=== PATIENT | female | born 1990 | race Caucasian/White ===

== ENCOUNTER 2020-07-22 17:31 | Emergency (ER) | payer MEDICARE ==
[~2020-07-22] VITALS: Ht 160 cm; Wt 65.1 kg
[2020-07-22 17:33] VITALS: BP 154/81
[2020-07-22] MEDS ORDERED: GABA-1171 PO (17:59)
[2020-07-22] MEDS ORDERED: TRIL600T PO (17:59)
[2020-07-22] MEDS ORDERED: NAPROXEN 250 MG TAB PO ONE (18:30)
[2020-07-22] MEDS ORDERED: OXcarbazepine 300 MG TAB PO STA (19:21)
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
== END 2020-07-22 19:58 | disposition left against medical advice (07) ==
LOC: M ED 17:31
DX: R22.32 Localized swelling, mass and lump, left upper limb (principal); M79.642 Pain in left hand; M54.5 Low back pain; V49.40XA Driver injured in collision with unspecified motor vehicles in traffic accident, initial encounter; I10 Essential (primary) hypertension; Z53.9 Procedure and treatment not carried out, unspecified reason

== ENCOUNTER 2021-02-07 18:32 | Inpatient (IN) | payer MEDICARE ==
[~2021-02-07] VITALS: Ht 162.6 cm; Wt 49.9 kg
[~2021-02-07 18:32] MED LIST: GABA-1171 PO; TRIL600T PO
[2021-02-07] MEDS ORDERED: NS 1,000 ML IV ONE (18:50)
[2021-02-07 19:10] LABS: HEMATOCRIT 36.8 % (36.0-47.0); HEMOGLOBIN 12.6 g/dl (12.0-15.5); MEAN CORPUSCULAR HEMOGLOBIN 31.3 pg (27.0-33.0); MEAN CORPUSCULAR HGB CONC 34.2 g/dl (32.0-36.5); MEAN CORPUSCULAR VOLUME 91.3 fl (80.0-96.0); PLATELET COUNT, AUTOMATED 249 10^3/uL (150-450); RED BLOOD COUNT 4.03 10^6/uL (4.00-5.40); WHITE BLOOD COUNT 13.2 10^3/uL (4.0-10.0)
[2021-02-07 19:40] LABS: HCG, SERUM QUALITATIVE NEGATIVE (NEGATIVE)
[2021-02-07 19:47] LABS: ACETAMINOPHEN LEVEL < 2.0 UG/ML (10.0-30.0); ALBUMIN 4.4 GM/DL (3.2-5.2); ALT/SGPT 30 U/L (12-78); BILIRUBIN,DIRECT 0.2 MG/DL (0.0-0.2); BILIRUBIN,TOTAL 0.5 MG/DL (0.2-1.0); BLOOD UREA NITROGEN 11 MG/DL (7-18); CALCIUM LEVEL 9.2 MG/DL (8.5-10.1); CARBON DIOXIDE LEVEL 23 MEQ/L (21-32); CHLORIDE LEVEL 104 MEQ/L (98-107); CPK CREATINE PHOSPHOKINASE 192 U/L (26-192); CREATININE FOR GFR 0.92 MG/DL (0.55-1.30); ETHYL ALCOHOL (ETHANOL) 0.005 % (0.000-0.010); GLOMERULAR FILTRATION RATE > 60.0 (>60); GLUCOSE, FASTING 150 MG/DL (70-100); POTASSIUM SERUM 3.5 MEQ/L (3.5-5.1); SALICYLATE LEVEL < 1.7 MG/DL (5.0-30.0); SODIUM LEVEL 136 MEQ/L (136-145)
[2021-02-07 20:13] LABS: AMPHETAMINES LEVEL URINE NEGATIVE (NEGATIVE); BARBITURATES URINE NEGATIVE (NEGATIVE); BENZODIAZEPINES URINE NEGATIVE (NEGATIVE); CANNABINOIDS URINE POSITIVE (NEGATIVE); COCAINE METABOLITE URINE NEGATIVE (NEGATIVE); METHADONE URINE NEGATIVE (NEGATIVE); OPIATES URINE NEGATIVE (NEGATIVE); PHENCYCLIDINE URINE NEGATIVE (NEGATIVE)
[2021-02-07] MEDS ORDERED: GABA-282 PO (22:49)
[2021-02-07] MEDS ORDERED: HOME MED LIST COMPLETE! XX SCH (22:50)
[2021-02-08] MEDS: OLANZapine ORAL DISINTEGRATING TAB 5MG PO PRN (01:55)
[2021-02-08] MEDS: traZODone 50 MG TAB PO PRN ×2 (01:55→03:07)
[2021-02-08 02:07] LABS: RSV AMPLIFICATION NEGATIVE (NEGATIVE)
[2021-02-08 03:27] VITALS: BP 118/76
[2021-02-08] MEDS ORDERED: LORazepam 2 MG/ML VIAL IM STA (07:38)
[2021-02-08] MEDS ORDERED: diphenhydrAMINE 50MG/ML VIAL (J1200) IM STA (07:38)
[2021-02-08] MEDS ORDERED: HALOPERIDOL 5MG/ML VIAL (J1630 PER 1) IM STA (07:38)
[2021-02-08 07:40] VITALS: BP 144/96
[2021-02-08] MEDS: GABAPENTIN 100 MG CAP PO SCH ×2 (09:00→20:40)
[2021-02-08] MEDS: OXcarbazepine 300 MG TAB PO SCH ×2 (09:00→20:40)
--- NOTE | 2021-02-08 09:33 | ECGEPIP ---
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
--- NOTE | 2021-02-08 10:05 | HPEPDOC ---
[facility] Medical History & Physical Date of Admission Feb 07, 2021 Date of Service: Feb 08, 2021 History and Physical Chief complaint: Who presented to the ER via EMS after she was acting erratic History of present illness: Patient is a 30 year old female with a PMHx of suspected seizure disorder who presented to [facility] via EMS after she was acting erratic at home. She was noted to have consumed edible marijuana. Patient was admitted to [facility] under the care of psychiatry. Hospitalist service was contacted for medical screening evaluation. Of note, patient was examined in the restraint room after a CODE25 was called on her earlier for combative behavior. She is seen laying in bed, drowsy and off restraints. She was not able to provide much details, other than she was not in any pain. Past Medical History: Suspected seiuzres Past Surgical History: Unable to obtain Allergies: See below Medications: See below Family History: Unable to obtain Social History: - Unable to obtain Review of Systems: Unable to obtain Physical exam: - Vitals: BP [118/76], HR [77], RR [18], Sat [98%RA], Temp [98.4F] - General: Lying in bed, Appears drowsy but awakes and responds and follows commands appropriately - HEENT: NC, AT, PERRLA - CVS: RRR, +S1S2 - Lungs: Fair air entry bilaterally, No appreciable wheezing / rales / rhonchi - Abdomen: Soft, Non-distended, Non-tender, + Bowel sounds x 4 - Extremities: No lower extremity edema, No calf tenderness - Neuro: moves all four extremities - Skin: No visible rashes Labs: See below Imaging: See below EKG: See below Assessment and Plan: Erratic behavior - Patient has been admitted to [facility] under the care of psychiatry - Currently being managed by psychiatry Suspected seizure disorder - Based on medications - c/w Oxcarbazepine DVT prophylaxis - Will c/w early ambulation Female plug maker was present throughout the duration of this history and physical examination Hospitalist service will sign off; please re-consult as required Vital Signs Vital Signs Date Time Temp Pulse Resp B/P (MAP) Pulse Ox O2 Delivery O2 Flow Rate FiO2 02/08/21 03:27 98.4 77 18 118/76 (90) 98 Room Air Laboratory Data Labs 24H Laboratory Tests 2 02/07/21 18:50: Nucleated Red Blood Cells % (auto) 0.0, Anion Gap 9, Glomerular Filtration Rate > 60.0, Calcium Level 9.2, Total Bilirubin 0.5, Direct Bilirubin 0.2, Aspartate Amino Transf (AST/SGOT) 23, Alanine Aminotransferase (ALT/SGPT) 30, Alkaline Phosphatase 63, Total Creatine Kinase 192, Total Protein 7.0, Albumin 4.4, [place]bu min/Globulin Ratio 1.7, Thyroid Stimulating Hormone (TSH) 2.120, Human Chorionic Gonadotropin, Qual NEGATIVE, Salicylates Level < 1.7L, Acetaminophen Level < 2.0L, Ethyl Alcohol Level 0.005 02/07/21 19:33: Urine Opiates Screen NEGATIVE, Urine Methadone Screen NEGATIVE, Urine Bar biturates Screen NEGATIVE, Urine Phencyclidine Screen NEGATIVE, Urine Amphetamines Screen NEGATIVE, Urine Benzodiazepines Screen NEGATIVE, Urine Cocaine Metabolite Screen NEGATIVE, Urine Cannabinoids Screen POSITIVEH 02/08/21 01:11: Coronavirus (COVID-19)(PCR) NEGATIVE, Influenza Type A (RT-PCR) NEGATIVE, Influenza Type B (RT-PCR) NEGATIVE, Respiratory Syncytial Virus (PCR) NEGATIVE CBC/BMP Laboratory Tests 02/07/21 18:50 Home Medications Scheduled Gabapentin (Gabapentin) 300 Mg Capsule, 300 MG PO BID Oxcarbazepine (Trileptal) 600 Mg Tablet, 600 MG PO BID Allergies Coded Allergies: No Known Allergies (Unverified , 07/22/20) STEVIE MICHELE MD Feb 08, 2021 10:05
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
[2021-02-09 06:55] VITALS: BP 117/68
[2021-02-09] MEDS: MAALOX 30 ML SUSP *UDC PO PRN ×2 (07:42→20:17)
[2021-02-09] MEDS: OLANZapine ORAL DISINTEGRATING TAB 5MG PO PRN (08:31)
[2021-02-09] MEDS: OXcarbazepine 300 MG TAB PO SCH ×2 (08:31→20:17)
[2021-02-09] MEDS: GABAPENTIN 100 MG CAP PO SCH ×2 (08:32→20:17)
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
[2021-02-09 16:49] VITALS: BP 143/92
[2021-02-10 05:57] VITALS: BP 128/62
[2021-02-10] MEDS: OXcarbazepine 300 MG TAB PO SCH ×2 (08:59→20:05)
[2021-02-10] MEDS: GABAPENTIN 100 MG CAP PO SCH ×2 (08:59→20:05)
[2021-02-10] MEDS: OLANZapine ORAL DISINTEGRATING TAB 5MG PO PRN ×2 (09:43→20:05)
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
[2021-02-10] MEDS: MAALOX 30 ML SUSP *UDC PO PRN ×2 (15:15→20:04)
[2021-02-10] MEDS: ONDANSETRON 4 MG TAB PO PRN (17:31)
[2021-02-10 17:44] VITALS: BP 145/95
--- NOTE | 2021-02-10 18:41 | IPNPDOC ---
Text Note Date of Service The patient was seen on 02/10/21. NOTE Hospitalist Progress Note Subjective: I was paged to the inpatient mental health unit for evaluation of multiple episodes of nausea and vomiting. Apparently this has been going on for a few days but she has been refusing seen by internal medicine. Now, she is demanding to see a physician ROCCO. Nevertheless, she will then shortly be found dancing, smiling, and laughing while walking in the hallways. I came to see and evaluate the patient and she appeared to be in good spirits, she is not complaining of any nausea at the time, and just had a minimally tender belly. Good bowel sounds. Objective: General: Awake, alert, oriented 3. Not in any acute distress. HEENT: Head normocephalic, atraumatic, sclera are nonicteric. Hearing is grossly intact to conversation. Respiratory: Clear to auscultation bilaterally with no wheezes, rales, or rhonchi. Cardiovascular: Regular rate and rhythm, with no rubs, gallops, or murmur. Abdomen: Soft, nontender, nondistended, no hepatosplenomegaly appreciated. Bowel sounds present. Extremities: 2+ pulses in the radial and dorsalis pedis bilaterally. No evidence of clubbing or cyanosis. Assessment: -Intermittent nausea and vomiting -In reading the medical chart it appears that she may have prolonged and frequent use of cannabis, therefore this may be cannabis hyperemesis syndrome -It is possible that this is also related to unspecified mood disorder, possible bipolar disorder during manic episode, or attention seeking behavior. -Infectious etiology is unlikely given that she has no fever, and is not persistently ill. Plan: Recommend Zofran on an as-needed basis. If this is secondary to cannabis hyperemesis syndrome the mainstay of treatment would be abstinence from cannabis. Otherwise, continue with treatment of psychiatric disorder per the primary team. VS,Fishbone, I+O VS, Fishbone, I+O Vital Signs Date Time Temp Pulse Resp B/P (MAP) Pulse Ox O2 Delivery O2 Flow Rate FiO2 02/10/21 17:44 98.1 95 16 145/95 (112) 99 Room Air LOIS FLORES Feb 10, 2021 18:41
[2021-02-10] MEDS: traZODone 50 MG TAB PO PRN (20:05)
[2021-02-11] MEDS: MAALOX 30 ML SUSP *UDC PO PRN (05:43)
[2021-02-11 07:20] VITALS: BP 139/87
[2021-02-11] MEDS: ONDANSETRON 4 MG TAB PO PRN ×2 (08:18→18:10)
[2021-02-11] MEDS: haloperidoL 5 MG TAB PO SCH ×4 (09:00→21:00)
[2021-02-11] MEDS: GABAPENTIN 100 MG CAP PO SCH ×2 (09:34→22:51)
[2021-02-11] MEDS: OXcarbazepine 300 MG TAB PO SCH ×2 (09:35→22:51)
--- NOTE | 2021-02-11 15:54 | MHIPNPDOC ---
[facility] Progress Note Progress Note DATE OF SERVICE: 02/11/21 HISTORY: Patient is a 30 year old Single, female who was brought to the ED by her father who had reported that she was not taking her Bipolar medications, she presented in the ED with manic speech and behaviors. PER ED REPORT: Pt. has been medically cleared. Pt. is in rm. along with her father. Pt. states she would like her father to stay during interview because he knows her and she is having difficulty thinking and speaking. Even though her speech is quite understandable, she asked for an title one teacher because she doesn't think we can understand her, asks if this abstract writer knows sign language. Pt. speech is quite rapid, she cannot stay on topic and mood is very labile. Pt. states she is her in ER because her mom triggered her and did not count to three for her today and then mother left before she gave her a hug. Pt. stated that she remembered being very anxious and taking off her clothes and crawling to the door, states she cannot connect verbally or visually with anyone Pt. states she has many problems because of her mothers breastmilk had too much caffeine in it. Pt exhibits flight of ideas. Pt. became very upset with father at one pt. and kicked him out of the room, stating he was a liar, was taking her mothers side, that he does not even know her. Pt. is very elevated in conversation, sates she only trusts the director of safety that is outside her door. Pt. states she smokes pot every four hours and has talking to her PCP in [facility] about the medical use of marijuana. Pt. states she has OCD. She tells her father to talk about what the Dr's have said because she does not believe in diagnoses. Pt. father reports pt is diagnosed Bipolar, has had multiple psychiatric admissions, most recently in 12/2019 in [facility]. Father reports pt. has not been taking medication for past two weeks. VITAL SIGNS: See below. CURRENT MEDICATIONS: See below. MENTAL STATUS EXAMINATION: Patient is a 30 year old Single, female who was brought to the ED by her father who had reported that she was not taking her Bipolar medications, she presented in the ED with manic speech and behaviors. Speech: Is spontaneous, normal rate, tone and volume. Tangential Language skills are intact Thought processes including: disorganized and scattered Thought content: She denies depression. Is observed to be very euphoric and grandiose Abstract reasoning, and computation: poor at times Description of associations: Grandiose, manic, flight of ideas Description of abnormal or psychotic thoughts: Patient denies that she is Bipolar, she is very grandiose and makes nonsensical and bizarre statements Judgment: Poor Insight: Poor Orientation: Alert and oriented to person, place and time but not to situation ( states that she was having a seizure) Recent and remote memory: intact Attention span and concentration: good Language: expansive Fund of knowledge: average Mood: Euphoric Affect: congruent with mood DIAGNOSES: 1. Bipolar ! Disorder, Recurrent, Manic 2. Cannabis Use Disorder 3. r/o PTSD 4. r/o Substance Induced Mood Disorder ASSESSMENT: Patient is delusional, grandiose and euphoric in today's interview. She reports that she cannot receive proper treatment here because of two people in the past did not have proper treatment and she only wishes to work with her current outside providers. She often observed by staff as somatic, labile with expansive mood. She is quite hypomanic today, disruptive on the unit, has been on the floor, and remains psychotic. Patient's Zyprexa discontinued and she initially refused Haldol. Patient is very delusional and makes bizarre statements about her parents that they are holiness and have different believes and she had reported that her father does not want her taking Haldol. Father was called for supportive collateral and he stated that he does not ever interfere with treatment and would support the treatment modalities that are in place. He did not tell the patient to refuse Haldol and he supports the administration of medications that will stabilize her mood. Patient had reported in her initial interview that she has had Haldol in the past. Due to patient's presentation, poor insight and judgment. and uncontrolled symptoms of presenting illness of willy and psychosis, she is not stable for discharge. MANAGEMENT PLAN: Continue medications and supportive therapies as ordered. Haldol 5 mg TID and Haldol 5 mg PRN for Q6 hours. Trileptal increased to 600 mg BID. Patient to be discharged when stable. TIME SPENT: 25 minutes. Vital Signs Vital Signs Date Time Temp Pulse Resp B/P (MAP) Pulse Ox O2 Delivery O2 Flow Rate FiO2 8/3/21 07:20 97.4 94 18 139/87 (104) 98 Room Air Current Medications Current Medications Medications (Trade) Dose Ordered Sig/Pepito Route PRN Reason Start Time Stop Time Status Last Admin Dose Admin Acetaminophen (Tylenol Tab) 650 mg Q6HP PRN PO HEADACHE or MILD DISCOMFORT 02/08/21 00:20 Al Hydrox/Mg Hydrox/Simethicone (Mylanta) 30 ml Q4HP PRN PO HEARTBURN/INDIGESTION 02/08/21 00:20 02/11/21 05:43 Diphenhydramine HCl (Benadryl) 50 mg STAT STAT IM 02/08/21 07:38 02/08/21 07:40 DC 02/08/21 07:50 Gabapentin (Neurontin) 100 mg BID PO 02/08/21 09:00 02/11/21 09:34 Haloperidol (Haldol) 5 mg Q6HP PRN PO AGITATION 02/11/21 08:40 Haloperidol (Haldol) 5 mg TID PO 02/11/21 09:00 Haloperidol (Haldol) 10 mg STAT STAT IM 02/08/21 07:38 02/08/21 07:40 DC 02/08/21 07:49 Home Med (Med Rec Complete!) ASDIRECTED XX 02/07/21 22:50 02/07/21 22:56 DC Lorazepam (Ativan) 2 mg STAT STAT IM 02/08/21 07:38 02/08/21 07:40 DC 02/08/21 07:50 Magnesium Hydroxide (Milk Of Magnesia) 30 ml DAILYPRN PRN PO CONSTIPATION 02/08/21 00:20 Olanzapine (ZyPREXA ZYDIS) 5 mg Q8HP PRN PO AGITATION 02/08/21 00:20 02/11/21 08:43 DC 02/10/21 20:05 Ondansetron HCl (Zofran) 4 mg Q4HP PRN PO NAUSEA OR VOMITING 02/10/21 17:25 02/11/21 08:18 Oxcarbazepine (Trileptal) 300 mg BID PO 02/08/21 09:00 02/11/21 09:35 Trazodone HCl (Desyrel) 50 mg QHSP PRN PO INSOMNIA 02/08/21 00:20 02/10/21 20:05 Allergies Coded Allergies: No Known Allergies (Unverified , 07/22/20) PRADEEP WILSON NP Feb 11, 2021 09:46
[2021-02-11 17:11] VITALS: BP 130/92
[2021-02-12] MEDS: ONDANSETRON 4 MG TAB PO PRN ×4 (01:11→20:36)
[2021-02-12] MEDS: MOM 30ML SUSPENSION UDC PO PRN (01:11)
[2021-02-12 06:10] VITALS: BP 129/77
[2021-02-12] MEDS: haloperidoL 5 MG TAB PO SCH ×3 (08:18→20:17)
[2021-02-12] MEDS: OXcarbazepine 300 MG TAB PO SCH ×2 (08:18→20:17)
[2021-02-12] MEDS: GABAPENTIN 100 MG CAP PO SCH ×2 (08:18→20:17)
--- NOTE | 2021-02-12 10:28 | MHIPNPDOC ---
[facility] Progress Note Progress Note DATE OF SERVICE: 02/12/21 HISTORY: Patient is a 30 year old Single, female who was brought to the ED by her father who had reported that she was not taking her Bipolar medica tions, she presented in the ED with manic speech and behaviors. PER ED REPORT: Pt. has been medically cleared. Pt. is in rm. along with her father. Pt. states she would like her father to stay during interview because he knows her and she is having difficulty thinking and speaking. Even though her speech is quite understandable, she asked for an diesel crane operator because she doesn't think we can understand her, asks if this automotive service writer knows sign language. Pt. speech is quite rapid, she cannot stay on topic and mood is very labile. Pt. states she is her in ER because her mom triggered her and did not count to three for her today and then mother left before she gave her a hug. Pt. stated that she remembered being very anxious and taking off her clothes and crawling to the door, states she cannot connect verbally or visually with anyone Pt. states she has many problems because of her mothers breastmilk had too much caffeine in it. Pt exhibits flight of ideas. Pt. became very upset with father at one pt. and kicked him out of the room, stating he was a liar, was taking her mothers side, that he does not even know her. Pt. is very elevated in conversation, sates she only trusts the health/safety job titles that is outside her door. Pt. states she smokes pot every four hours and has talking to her PCP in [facility] about the medical use of marijuana. Pt. states she has OCD. She tells her father to talk about what the Dr's have said because she does not believe in diagnoses. Pt. father reports pt is diagnosed Bipolar, has had multiple psychiatric admissions, most recently in 12/2019 in [facility]. Father reports pt. has not been taking medication for past two weeks. VITAL SIGNS: See below. CURRENT MEDICATIONS: See below. MENTAL STATUS EXAMINATION: Patient is a 30 year old Single, female who was brought to the ED by her father who had reported that she was not taking her Bipolar medications, she presented in the ED with manic speech and behaviors. Speech: Is spontaneous, normal rate, tone and volume. Tangential Language skills are intact Thought processes including: disorganized and scattered Thought content: She denies depression. Is observed to be very euphoric and grandiose Abstract reasoning, and computation: poor at times Description of associations: Grandiose, manic, flight of ideas Description of abnormal or psychotic thoughts: Patient denies that she is Bipolar, she is very grandiose and makes nonsensical and bizarre statements Judgment: Poor Insight: Poor Orientation: Alert and oriented to person, place and time but not to situation ( states that she was having a seizure) Recent and remote memory: intact Attention span and concentration: good Language: expansive Fund of knowledge: average Mood: Euphoric Affect: congruent with mood DIAGNOSES: 1. Bipolar ! Disorder, Recurrent, Manic 2. Cannabis Use Disorder 3. r/o PTSD 4. r/o Substance Induced Mood Disorder ASSESSMENT: Patient remains delusional grandiose and euphoric in interview. She remains persistent wanting to receive treatment from outside providers and to leave this facility and living with her boyfriend. In regards to Haldol, she still refusing to take it and treatment over objection was discussed with patient, for which she was not pleased with and does not believe she needs an antipsychotic medication. It was explained to her that continued refusal may result in her being transferred to the [facility]. She reports that she was able to keep down her Trileptal and gabapentin. Patient is still exhibiting psychotic symptoms and remains hypomanic and disruptive: demands providers contact outside providers to receive their input in her care, purging after taking medicine and eating, and verbally combative with staff and providers. She also stated that she hit her head and had a seizure this morning. Patient is not stable for discharge at this time due to continuous symptoms of willy and psychosis accompanied by poor insight and judgment, and refusal of treatment. MANAGEMENT PLAN: Continue medications and supportive therapies as ordered. Convert to 2 PC. Transfer to [facility], will pursue Treatment Over Objection TIME SPENT: 25 minutes. Vital Signs Vital Signs Date Time Temp Pulse Resp B/P (MAP) Pulse Ox O2 Delivery O2 Flow Rate FiO2 02/12/21 06:10 97.2 98 18 129/77 (94) 98 Room Air Current Medications Current Medications Medications (Trade) Dose Ordered Sig/Pepito Route PRN Reason Start Time Stop Time Status Last Admin Dose Admin Acetaminophen (Tylenol Tab) 650 mg Q6HP PRN PO HEADACHE or MILD DISCOMFORT 02/08/21 00:20 Al Hydrox/Mg Hydrox/Simethicone (Mylanta) 30 ml Q4HP PRN PO HEARTBURN/INDIGESTION 02/08/21 00:20 02/11/21 05:43 Diphenhydramine HCl (Benadryl) 50 mg STAT STAT IM 02/08/21 07:38 02/08/21 07:40 DC 02/08/21 07:50 Gabapentin (Neurontin) 100 mg BID PO 02/08/21 09:00 02/12/21 08:18 Haloperidol (Haldol) 5 mg Q6HP PRN PO AGITATION 02/11/21 08:40 Haloperidol (Haldol) 5 mg TID PO 02/11/21 09:00 02/11/21 11:23 Haloperidol (Haldol) 10 mg STAT STAT IM 02/08/21 07:38 02/08/21 07:40 DC 02/08/21 07:49 Home Med (Med Rec Complete!) ASDIRECTED XX 02/07/21 22:50 02/07/21 22:56 DC Lorazepam (Ativan) 2 mg STAT STAT IM 02/08/21 07:38 02/08/21 07:40 DC 02/08/21 07:50 Magnesium Hydroxide (Milk Of Magnesia) 30 ml DAILYPRN PRN PO CONSTIPATION 02/08/21 00:20 02/12/21 01:11 Olanzapine (ZyPREXA ZYDIS) 5 mg Q8HP PRN PO AGITATION 02/08/21 00:20 02/11/21 08:43 DC 02/10/21 20:05 Ondansetron HCl (Zofran) 4 mg Q4HP PRN PO NAUSEA OR VOMITING 02/10/21 17:25 02/12/21 06:46 Oxcarbazepine (Trileptal) 300 mg BID PO 02/08/21 09:00 02/11/21 16:07 DC 02/11/21 09:35 Oxcarbazepine (Trileptal) 600 mg BID PO 02/11/21 21:00 02/12/21 08:18 Trazodone HCl (Desyrel) 50 mg QHSP PRN PO INSOMNIA 02/08/21 00:20 02/10/21 20:05 Allergies Coded Allergies: No Known Allergies (Unverified , 07/22/20) PRADEEP WILSON NP Feb 12, 2021 10:09
[2021-02-12] MEDS: ACETAMINOPHEN TAB 650MG DOSE (2X325MG) PO PRN (15:17)
[2021-02-12 16:18] VITALS: BP 137/89
[2021-02-12] MEDS: MAALOX 30 ML SUSP *UDC PO PRN (17:31)
[2021-02-12] MEDS: haloperidoL 5 MG TAB PO PRN (19:33)
[2021-02-13 07:43] VITALS: BP 138/94
[2021-02-13] MEDS: GABAPENTIN 100 MG CAP PO SCH ×2 (08:31→19:57)
[2021-02-13] MEDS: OXcarbazepine 300 MG TAB PO SCH ×2 (08:31→19:57)
[2021-02-13] MEDS: haloperidoL 5 MG TAB PO SCH ×3 (08:31→19:57)
--- NOTE | 2021-02-13 08:59 | MHIPNPDOC ---
[facility] Progress Note Progress Note DATE OF SERVICE: 02/13/21 HISTORY: Patient is a 30 year old Single, female who was brought to the ED by her father who had reported that she was not taking her Bipolar medica tions, she presented in the ED with manic speech and behaviors. PER ED REPORT: Pt. has been medically cleared. Pt. is in rm. along with her father. Pt. states she would like her father to stay during interview because he knows her and she is having difficulty thinking and speaking. Even though her speech is quite understandable, she asked for an button breaker operator because she doesn't think we can understand her, asks if this contract technical writer knows sign language. Pt. speech is quite rapid, she cannot stay on topic and mood is very labile. Pt. states she is her in ER because her mom triggered her and did not count to three for her today and then mother left before she gave her a hug. Pt. stated that she remembered being very anxious and taking off her clothes and crawling to the door, states she cannot connect verbally or visually with anyone Pt. states she has many problems because of her mothers breastmilk had too much caffeine in it. Pt exhibits flight of ideas. Pt. became very upset with father at one pt. and kicked him out of the room, stating he was a liar, was taking her mothers side, that he does not even know her. Pt. is very elevated in conversation, sates she only trusts the radiation safety officer that is outside her door. Pt. states she smokes pot every four hours and has talking to her PCP in [facility] about the medical use of marijuana. Pt. states she has OCD. She tells her father to talk about what the Dr's have said because she does not believe in diagnoses. Pt. father reports pt is diagnosed Bipolar, has had multiple psychiatric admissions, most recently in 12/2019 in [facility]. Father reports pt. has not been taking medication for past two weeks. VITAL SIGNS: See below. CURRENT MEDICATIONS: See below. MENTAL STATUS EXAMINATION: Patient is a 30 year old Single, female who was brought to the ED by her father who had reported that she was not taking her Bipolar medications, she presented in the ED with manic speech and behaviors. Speech: Is spontaneous, normal rate, tone and volume. Tangential Language skills are intact Thought processes including: minimally linear, this is an improvement Thought content: She denies depression. Is observed to be very euphoric and grandiose Abstract reasoning, and computation: poor at times Description of associations: Grandiose, hypomanic, euphotic Description of abnormal or psychotic thoughts: continues to be grandiose and makes nonsensical and bizarre statements Judgment: Poor Insight: Poor Orientation: Alert and oriented to person, place and time but not to situation ( states that she was having a seizure) Recent and remote memory: intact Attention span and concentration: good Language: expansive Fund of knowledge: average Mood: Euphoric Affect: congruent with mood DIAGNOSES: 1. Bipolar ! Disorder, Recurrent, Manic 2. Cannabis Use Disorder 3. r/o PTSD 4. r/o Substance Induced Mood Disorder ASSESSMENT: Patient agreeable to interview, has her glasses. She is euphoric and animated in the interview, she has improvement in that she has decrease loose associations, delusional thinking and reports that she is in agreement to taking Haldol and will comply. She is not stable for discharge at this time, but staff is reporting a mild improvement in her behaviors. MANAGEMENT PLAN: Continue medications and supportive therapies as ordered. Convert to 2 PC. Transfer to [facility], will pursue Treatment Over Objection TIme Spent: 25 minutes Vital Signs Vital Signs Date Time Temp Pulse Resp B/P (MAP) Pulse Ox O2 Delivery O2 Flow Rate FiO2 02/12/21 16:18 98.6 77 16 137/89 (105) 100 Room Air Current Medications Current Medications Medications (Trade) Dose Ordered Sig/Pepito Route PRN Reason Start Time Stop Time Status Last Admin Dose Admin Acetaminophen (Tylenol Tab) 650 mg Q6HP PRN PO HEADACHE or MILD DISCOMFORT 02/08/21 00:20 02/12/21 15:17 Al Hydrox/Mg Hydrox/Simethicone (Mylanta) 30 ml Q4HP PRN PO HEARTBURN/INDIGESTION 02/08/21 00:20 02/12/21 17:31 Diphenhydramine HCl (Benadryl) 50 mg STAT STAT IM 02/08/21 07:38 02/08/21 07:40 DC 02/08/21 07:50 Gabapentin (Neurontin) 100 mg BID PO 02/08/21 09:00 02/12/21 20:17 Haloperidol (Haldol) 5 mg Q6HP PRN PO AGITATION 02/11/21 08:40 02/12/21 19:33 Haloperidol (Haldol) 5 mg TID PO 02/11/21 09:00 02/12/21 20:17 Haloperidol (Haldol) 10 mg STAT STAT IM 02/08/21 07:38 02/08/21 07:40 DC 02/08/21 07:49 Home Med (Med Rec Complete!) ASDIRECTED XX 02/07/21 22:50 02/07/21 22:56 DC Lorazepam (Ativan) 2 mg STAT STAT IM 02/08/21 07:38 02/08/21 07:40 DC 02/08/21 07:50 Magnesium Hydroxide (Milk Of Magnesia) 30 ml DAILYPRN PRN PO CONSTIPATION 02/08/21 00:20 02/12/21 01:11 Olanzapine (ZyPREXA ZYDIS) 5 mg Q8HP PRN PO AGITATION 02/08/21 00:20 02/11/21 08:43 DC 02/10/21 20:05 Ondansetron HCl (Zofran) 4 mg Q4HP PRN PO NAUSEA OR VOMITING 02/10/21 17:25 02/12/21 20:36 Oxcarbazepine (Trileptal) 300 mg BID PO 02/08/21 09:00 02/11/21 16:07 DC 02/11/21 09:35 Oxcarbazepine (Trileptal) 600 mg BID PO 02/11/21 21:00 02/12/21 20:17 Trazodone HCl (Desyrel) 50 mg QHSP PRN PO INSOMNIA 02/08/21 00:20 02/10/21 20:05 Allergies Coded Allergies: No Known Allergies (Unverified , 07/22/20) PRADEEP WILSON NP Feb 13, 2021 07:44
[2021-02-13] MEDS: BENZTROPINE 0.5 MG TAB PO PRN (11:59)
[2021-02-13] MEDS: ACETAMINOPHEN TAB 650MG DOSE (2X325MG) PO PRN (12:08)
[2021-02-13 16:49] VITALS: BP 142/90
[2021-02-13] MEDS: ONDANSETRON 4 MG TAB PO PRN (17:27)
[2021-02-13] MEDS: MOM 30ML SUSPENSION UDC PO PRN (19:16)
[2021-02-13] MEDS: haloperidoL 5 MG TAB PO PRN (19:57)
[2021-02-14] MEDS: MAALOX 30 ML SUSP *UDC PO PRN (07:52)
[2021-02-14] MEDS: OXcarbazepine 300 MG TAB PO SCH ×2 (08:26→20:05)
[2021-02-14] MEDS: IBUPROFEN 800 MG TAB PO PRN (08:26)
[2021-02-14] MEDS: GABAPENTIN 100 MG CAP PO SCH ×2 (08:27→20:05)
[2021-02-14] MEDS: haloperidoL 5 MG TAB PO SCH ×3 (08:27→20:05)
[2021-02-14 08:32] VITALS: BP 136/80
--- NOTE | 2021-02-14 09:49 | MHIPNPDOC ---
[facility] Progress Note Progress Note DATE OF SERVICE: 02/14/21 HISTORY: Patient is a 30 year old Single, female who was brought to the ED by her father who had reported that she was not taking her Bipolar medications, she presented in the ED with manic speech and behaviors. PER ED REPORT: Pt. has been medically cleared. Pt. is in rm. along with her father. Pt. states she would like her father to stay during interview because he knows her and she is having difficulty thinking and speaking. Even though her speech is quite understandable, she asked for an bunch maker because she doesn't think we can understand her, asks if this writer editor knows sign language. Pt. speech is quite rapid, she cannot stay on topic and mood is very labile. Pt. states she is her in ER because her mom triggered her and did not count to three for her today and then mother left before she gave her a hug. Pt. stated that she remembered being very anxious and taking off her clothes and crawling to the door, states she cannot connect verbally or visually with anyone Pt. states she has many problems because of her mothers breastmilk had too much caffeine in it. Pt exhibits flight of ideas. Pt. became very upset with father at one pt. and kicked him out of the room, stating he was a liar, was taking her mothers side, that he does not even know her. Pt. is very elevated in conversation, sates she only trusts the water safety teacher that is outside her door. Pt. states she smokes pot every four hours and has talking to her PCP in [facility] about the medical use of marijuana. Pt. states she has OCD. She tells her father to talk about what the Dr's have said because she does not believe in diagnoses. Pt. father reports pt is diagnosed Bipolar, has had multiple psychiatric admissions, most recently in 12/2019 in [facility]. Father reports pt. has not been taking medication for past two weeks. VITAL SIGNS: See below. CURRENT MEDICATIONS: See below. MENTAL STATUS EXAMINATION: Patient is a 30 year old Single, female who was brought to the ED by her father who had reported that she was not taking her Bipolar medications, she presented in the ED with manic speech and behaviors. Speech: Is spontaneous, normal rate, tone and volume. Tangential Language skills are intact Thought processes including: minimally linear, this is an improvement. Flight of ideas and loose associations Thought content: She denies depression. Is observed to be very euphoric and grandiose Abstract reasoning, and computation: poor at times Description of associations: Grandiose, hypomanic, euphotic Description of abnormal or psychotic thoughts: continues to be grandiose and makes nonsensical and bizarre statements Judgment: Poor Insight: Poor Orientation: Alert and oriented to person, place and time but not to situation ( states that she was having a seizure) Recent and remote memory: intact Attention span and concentration: good Language: expansive Fund of knowledge: average Mood: Euphoric and labile affect: congruent with mood DIAGNOSES: 1. Bipolar ! Disorder, Recurrent, Manic 2. Cannabis Use Disorder 3. r/o PTSD 4. r/o Substance Induced Mood Disorder ASSESSMENT: Patient is quite somatic today complains about having nausea and vomiting and diarrhea none of these have been observed by the RNs. Although the patient is self purging and currently has an order to be locked out of her room an hour after medication administration in after meals. Patient complaints about her ovaries and internal organs in continues to have periods of labile mood. Restlessness and irritable and agitation. She remains unstable and does not have good insight or judgment. She has escalating behaviors calling staff names and being very impulsive and intrusive toward peers. MANAGEMENT PLAN: Continue medications and supportive therapies as ordered. Convert to 2 PC. [place] [facility] [place], patient is agreeable to taking medications therefore treatment over objection is terminated. TIme Spent: 25 minutes Vital Signs Vital Signs Date Time Temp Pulse Resp B/P (MAP) Pulse Ox O2 Delivery O2 Flow Rate FiO2 02/14/21 08:32 98.7 125 16 136/80 (98) 100 Room Air Current Medications Current Medications Medications (Trade) Dose Ordered Sig/Pepito Route PRN Reason Start Time Stop Time Status Last Admin Dose Admin Acetaminophen (Tylenol Tab) 650 mg Q6HP PRN PO HEADACHE or MILD DISCOMFORT 02/08/21 00:20 02/14/21 08:07 DC 02/13/21 12:08 Al Hydrox/Mg Hydrox/Simethicone (Mylanta) 30 ml Q4HP PRN PO HEARTBURN/INDIGESTION 02/08/21 00:20 02/14/21 07:52 Benztropine Mesylate (Cogentin) 0.5 mg BIDP PRN PO EPS 02/13/21 11:55 02/13/21 11:59 Diphenhydramine HCl (Benadryl) 50 mg STAT STAT IM 02/08/21 07:38 02/08/21 07:40 DC 02/08/21 07:50 Gabapentin (Neurontin) 100 mg BID PO 02/08/21 09:00 02/14/21 08:27 Haloperidol (Haldol) 5 mg Q6HP PRN PO AGITATION 02/11/21 08:40 02/13/21 19:57 Haloperidol (Haldol) 5 mg TID PO 02/11/21 09:00 02/14/21 08:27 Haloperidol (Haldol) 10 mg STAT STAT IM 02/08/21 07:38 02/08/21 07:40 DC 02/08/21 07:49 Home Med (Med Rec Complete!) ASDIRECTED XX 02/07/21 22:50 02/07/21 22:56 DC Ibuprofen (Advil) 800 mg Q6HP PRN PO MODERATE PAIN (PS 5-7) 02/14/21 08:10 02/14/21 08:26 Lorazepam (Ativan) 2 mg STAT STAT IM 02/08/21 07:38 02/08/21 07:40 DC 02/08/21 07:50 Magnesium Hydroxide (Milk Of Magnesia) 30 ml DAILYPRN PRN PO CONSTIPATION 02/08/21 00:20 02/13/21 19:16 Olanzapine (ZyPREXA ZYDIS) 5 mg Q8HP PRN PO AGITATION 02/08/21 00:20 02/11/21 08:43 DC 02/10/21 20:05 Ondansetron HCl (Zofran) 4 mg Q4HP PRN PO NAUSEA OR VOMITING 02/10/21 17:25 02/13/21 17:27 Oxcarbazepine (Trileptal) 300 mg BID PO 02/08/21 09:00 02/11/21 16:07 DC 02/11/21 09:35 Oxcarbazepine (Trileptal) 600 mg BID PO 02/11/21 21:00 02/14/21 08:26 Trazodone HCl (Desyrel) 50 mg QHSP PRN PO INSOMNIA 02/08/21 00:20 02/10/21 20:05 Allergies Coded Allergies: No Known Allergies (Unverified , 07/22/20) PRADEEP WILSON NP Feb 14, 2021 09:49
[2021-02-14 16:29] VITALS: BP 134/90
[2021-02-15] VITALS (12 sets, daily range): BP systolic 128–157; BP diastolic 69–100
[2021-02-15] MEDS ORDERED: diphenhydrAMINE 50MG/ML VIAL (J1200) IM STA (06:41)
[2021-02-15] MEDS ORDERED: LORazepam 2 MG/ML VIAL IM STA (06:41)
[2021-02-15] MEDS ORDERED: HALOPERIDOL 5MG/ML VIAL (J1630 PER 1) IM STA (06:41)
[2021-02-15] MEDS: GABAPENTIN 100 MG CAP PO SCH ×2 (08:33→20:25)
[2021-02-15] MEDS: OXcarbazepine 300 MG TAB PO SCH ×2 (08:33→20:25)
[2021-02-15] MEDS: haloperidoL 5 MG TAB PO SCH ×3 (08:33→20:25)
[2021-02-16] MEDS: OXcarbazepine 300 MG TAB PO SCH ×2 (08:39→20:31)
[2021-02-16] MEDS: GABAPENTIN 100 MG CAP PO SCH ×2 (08:39→20:32)
[2021-02-16] MEDS: haloperidoL 5 MG TAB PO SCH ×3 (08:55→20:31)
[2021-02-16] MEDS: haloperidoL 5 MG TAB PO PRN (11:12)
[2021-02-16] MEDS: IBUPROFEN 800 MG TAB PO PRN (11:12)
[2021-02-16] MEDS: BENZTROPINE 0.5 MG TAB PO PRN (11:12)
[2021-02-16] MEDS ORDERED: LORazepam 1 MG TAB PO PRN (11:15)
[2021-02-16] MEDS: diphenhydrAMINE 50MG CAP PO PRN (11:40)
[2021-02-16 16:33] VITALS: BP 126/82
[2021-02-17 07:39] VITALS: BP 140/96
[2021-02-17 08:24] VITALS: BP 133/86
[2021-02-17] MEDS: haloperidoL 5 MG TAB PO SCH ×3 (08:26→20:19)
[2021-02-17] MEDS: OXcarbazepine 300 MG TAB PO SCH ×2 (08:26→20:20)
[2021-02-17] MEDS: GABAPENTIN 100 MG CAP PO SCH ×2 (08:26→20:19)
--- NOTE | 2021-02-17 10:45 | MHIPNPDOC ---
[facility] Progress Note Progress Note DATE OF SERVICE: 02/17/21 This is a progress note on Joanne Cline on February 16. Patient had a agitated episode on Wednesday and required physical restraint and extra medications to control her behavior. This morning the patient is in much better control and is in better spirit but is showing no insight and remains quite elevated and inappropriate. She claims that she was just feeling a little too anxious and did not mean to harm anybody but understands that she was out of control. She is denying any physical discomfort or pain and in no acute physical distress and states that she is willing to cooperate with her medications. HISTORY:. VITAL SIGNS: See below. NEW TEST RESULTS:. CURRENT MEDICATIONS: See below. MENTAL STATUS EXAMINATION: Patient is a 30-year old female, who is in no acute distress. Speech: Is pressured. Language skills are fair. Thought processes including: Relevant but easily distracted. Thought content: Claims that she has no major mental health issues. Abstract reasoning, and computation:. Description of associations: Pressured and flighty. Description of abnormal or psychotic thoughts: Denies any command hallucination. Judgment: Poor. Insight poor]. Orientation: Oriented. Recent and remote memory: No gross impairment. Attention span and concentration:. Language:. Fund of knowledge:. Mood: Reports feeling fine. Affect: Inappropriately elevated and labile. DIAGNOSES: 1.. Bipolar disorder manic 2.. Rule out schizoaffective disorder 3.. ASSESSMENT: He is in better control but was quite agitated yesterday MANAGEMENT PLAN: Continue with the current medicine and supportive therapy. TIME SPENT: 10 minutes. Vital Signs Vital Signs Date Time Temp Pulse Resp B/P (MAP) Pulse Ox O2 Delivery O2 Flow Rate FiO2 02/17/21 08:24 98.0 98 18 133/86 (102) 98 Room Air Current Medications Current Medications Medications (Trade) Dose Ordered Sig/Pepito Route PRN Reason Start Time Stop Time Status Last Admin Dose Admin Acetaminophen (Tylenol Tab) 650 mg Q6HP PRN PO HEADACHE or MILD DISCOMFORT 02/08/21 00:20 02/14/21 08:07 DC 02/13/21 12:08 Al Hydrox/Mg Hydrox/Simethicone (Mylanta) 30 ml Q4HP PRN PO HEARTBURN/INDIGESTION 02/08/21 00:20 02/14/21 07:52 Benztropine Mesylate (Cogentin) 0.5 mg BIDP PRN PO EPS 02/13/21 11:55 02/16/21 11:12 Diphenhydramine HCl (Benadryl) 50 mg Q6HP PRN PO ANXIETY/AGITATION 02/16/21 11:15 02/16/21 11:40 Diphenhydramine HCl (Benadryl) 50 mg STAT STAT IM 02/08/21 07:38 02/08/21 07:40 DC 02/08/21 07:50 Diphenhydramine HCl (Benadryl) 50 mg STAT STAT IM 02/15/21 06:41 02/15/21 06:44 DC 02/15/21 07:05 Gabapentin (Neurontin) 100 mg BID PO 02/08/21 09:00 02/17/21 08:26 Haloperidol (Haldol) 5 mg Q6HP PRN PO AGITATION 02/11/21 08:40 02/16/21 11:12 Haloperidol (Haldol) 5 mg STAT STAT IM 02/15/21 06:41 02/15/21 06:44 DC 02/15/21 07:05 Haloperidol (Haldol) 5 mg TID PO 02/11/21 09:00 02/17/21 08:26 Haloperidol (Haldol) 10 mg STAT STAT IM 02/08/21 07:38 02/08/21 07:40 DC 02/08/21 07:49 Home Med (Med Rec Complete!) ASDIRECTED XX 02/07/21 22:50 02/07/21 22:56 DC Ibuprofen (Advil) 800 mg Q6HP PRN PO MODERATE PAIN (PS 5-7) 02/14/21 08:10 02/16/21 11:12 Lorazepam (Ativan) 1 mg Q6HP PRN PO ANXIETY 02/16/21 11:15 02/16/21 11:40 Lorazepam (Ativan) 1 mg STAT STAT IM 02/15/21 06:41 02/15/21 06:44 DC 02/15/21 07:03 Lorazepam (Ativan) 2 mg STAT STAT IM 02/08/21 07:38 02/08/21 07:40 DC 02/08/21 07:50 Magnesium Hydroxide (Milk Of Magnesia) 30 ml DAILYPRN PRN PO CONSTIPATION 02/08/21 00:20 02/13/21 19:16 Olanzapine (ZyPREXA ZYDIS) 5 mg Q8HP PRN PO AGITATION 02/08/21 00:20 02/11/21 08:43 DC 02/10/21 20:05 Ondansetron HCl (Zofran) 4 mg Q4HP PRN PO NAUSEA OR VOMITING 02/10/21 17:25 02/13/21 17:27 Oxcarbazepine (Trileptal) 300 mg BID PO 02/08/21 09:00 02/11/21 16:07 DC 02/11/21 09:35 Oxcarbazepine (Trileptal) 600 mg BID PO 02/11/21 21:00 02/17/21 08:26 Trazodone HCl (Desyrel) 50 mg QHSP PRN PO INSOMNIA 02/08/21 00:20 02/10/21 20:05 Allergies Coded Allergies: No Known Allergies (Unverified , 07/22/20) MAYO BERNARD M.D. Feb 17, 2021 10:45
[2021-02-17] MEDS: diphenhydrAMINE 50MG CAP PO PRN (11:35)
--- NOTE | 2021-02-17 14:52 | MHIPNPDOC ---
[facility] Progress Note Progress Note DATE OF SERVICE: 02/17/21 HISTORY: Patient is a 30 year old Single, female who was brought to the ED by her father who had reported that she was not taking her Bipolar medic ations, she presented in the ED with manic speech and behaviors. PER ED REPORT: Pt. has been medically cleared. Pt. is in rm. along with her father. Pt. states she would like her father to stay during interview because he knows her and she is having difficulty thinking and speaking. Even though her speech is quite understandable, she asked for an furnace clerk because she doesn't think we can understand her, asks if this chief writer knows sign language. Pt. speech is quite rapid, she cannot stay on topic and mood is very labile. Pt. states she is her in ER because her mom triggered her and did not count to three for her today and then mother left before she gave her a hug. Pt. stated that she remembered being very anxious and taking off her clothes and crawling to the door, states she cannot connect verbally or visually with anyone Pt. states she has many problems because of her mothers breastmilk had too much caffeine in it. Pt exhibits flight of ideas. Pt. became very upset with father at one pt. a nd kicked him out of the room, stating he was a liar, was taking her mothers side, that he does not even know her. Pt. is very elevated in conversation, sates she only trusts the health and safety director that is outside her door. Pt. states she smokes pot every four hours and has talking to her PCP in [facility] about the medical use of marijuana. Pt. states she has OCD. She tells her father to talk about what the Dr's have said because she does not believe in diagnoses. Pt. father reports pt is diagnosed Bipolar, has had multiple psychiatric admissions, most recently in 12/[address] [facility]. Father reports pt. has not been taking medication for past two weeks. VITAL SIGNS: See below. CURRENT MEDICATIONS: See below. MENTAL STATUS EXAMINATION: Patient is a 30 year old Single, female who was brought to the ED by her father who had reported that she was not taking her Bipolar medications, she presented in the ED with manic speech and behaviors. Speech: Is spontaneous, normal tone and volume. Tangential Language skills are intact Thought processes including: improved, more linear and organized Thought content: She denies depression. moderate euphoric and grandiose. Abstract reasoning, and computation:fair - improving Description of associations: Grandiose, hypomanic, euphoric Description of abnormal or psychotic thoughts: continues to be grandiose Judgment: improving Insight: improving Orientation: Alert and oriented to person, place and time but not to situation ( states that she was having a seizure) Recent and remote memory: intact Attention span and concentration: good Language: expansive Fund of knowledge: average Mood: Moderately Euphoric affect: congruent with mood DIAGNOSES: 1. Bipolar Disorder, Manic 2. Cannabis Use Disorder 3. r/o PTSD 4. r/o Substance Induced Mood Disorder ASSESSMENT: Patient states that she was coded over the weekend because she stanley me upset about her not being able to have her clothes. She states that she lost her patience and reports that she knows when she is paranoid that she is in a manic phase. She reports that she is having good effects with Haldol. She appeared to have improved mood, still moderately euphoric but appears to have good insight. Says that she will continue her medications, feels that Haldol is working and not making her overly sedated like Invega. Patient may be discharged later in the week if she continues to improve, MANAGEMENT PLAN: Continue medications and supportive therapies as ordered. Convert to 2 PC. TIme Spent: 25 minutes Vital Signs Vital Signs Date Time Temp Pulse Resp B/P (MAP) Pulse Ox O2 Delivery O2 Flow Rate FiO2 02/17/21 08:24 98.0 98 18 133/86 (102) 98 Room Air Current Medications Current Medications Medications (Trade) Dose Ordered Sig/Pepito Route PRN Reason Start Time Stop Time Status Last Admin Dose Admin Acetaminophen (Tylenol Tab) 650 mg Q6HP PRN PO HEADACHE or MILD DISCOMFORT 02/08/21 00:20 02/14/21 08:07 DC 02/13/21 12:08 Al Hydrox/Mg Hydrox/Simethicone (Mylanta) 30 ml Q4HP PRN PO HEARTBURN/INDIGESTION 02/08/21 00:20 02/14/21 07:52 Benztropine Mesylate (Cogentin) 0.5 mg BIDP PRN PO EPS 02/13/21 11:55 02/16/21 11:12 Diphenhydramine HCl (Benadryl) 50 mg Q6HP PRN PO ANXIETY/AGITATION 02/16/21 11:15 02/17/21 11:35 Diphenhydramine HCl (Benadryl) 50 mg STAT STAT IM 02/08/21 07:38 02/08/21 07:40 DC 02/08/21 07:50 Diphenhydramine HCl (Benadryl) 50 mg STAT STAT IM 02/15/21 06:41 02/15/21 06:44 DC 02/15/21 07:05 Gabapentin (Neurontin) 100 mg BID PO 02/08/21 09:00 02/17/21 08:26 Haloperidol (Haldol) 5 mg Q6HP PRN PO AGITATION 02/11/21 08:40 02/16/21 11:12 Haloperidol (Haldol) 5 mg STAT STAT IM 02/15/21 06:41 02/15/21 06:44 DC 02/15/21 07:05 Haloperidol (Haldol) 5 mg TID PO 02/11/21 09:00 02/17/21 08:26 Haloperidol (Haldol) 10 mg STAT STAT IM 02/08/21 07:38 02/08/21 07:40 DC 02/08/21 07:49 Home Med (Med Rec Complete!) ASDIRECTED XX 02/07/21 22:50 02/07/21 22:56 DC Ibuprofen (Advil) 800 mg Q6HP PRN PO MODERATE PAIN (PS 5-7) 02/14/21 08:10 02/16/21 11:12 Lorazepam (Ativan) 1 mg Q6HP PRN PO ANXIETY 02/16/21 11:15 02/16/21 11:40 Lorazepam (Ativan) 1 mg STAT STAT IM 02/15/21 06:41 02/15/21 06:44 DC 02/15/21 07:03 Lorazepam (Ativan) 2 mg STAT STAT IM 02/08/21 07:38 02/08/21 07:40 DC 02/08/21 07:50 Magnesium Hydroxide (Milk Of Magnesia) 30 ml DAILYPRN PRN PO CONSTIPATION 02/08/21 00:20 02/13/21 19:16 Olanzapine (ZyPREXA ZYDIS) 5 mg Q8HP PRN PO AGITATION 02/08/21 00:20 02/11/21 08:43 DC 02/10/21 20:05 Ondansetron HCl (Zofran) 4 mg Q4HP PRN PO NAUSEA OR VOMITING 02/10/21 17:25 02/13/21 17:27 Oxcarbazepine (Trileptal) 300 mg BID PO 02/08/21 09:00 02/11/21 16:07 DC 02/11/21 09:35 Oxcarbazepine (Trileptal) 600 mg BID PO 02/11/21 21:00 02/17/21 08:26 Trazodone HCl (Desyrel) 50 mg QHSP PRN PO INSOMNIA 02/08/21 00:20 02/10/21 20:05 Allergies Coded Allergies: No Known Allergies (Unverified , 07/22/20) PRADEEP WILSON NP Feb 17, 2021 14:52
[2021-02-17 16:28] VITALS: BP 123/83
[2021-02-18 07:03] VITALS: BP 147/81
[2021-02-18] MEDS: GABAPENTIN 100 MG CAP PO SCH ×2 (09:00→20:29)
[2021-02-18] MEDS: OXcarbazepine 300 MG TAB PO SCH ×2 (09:00→20:29)
[2021-02-18] MEDS: haloperidoL 5 MG TAB PO SCH ×3 (09:00→20:29)
[2021-02-18 09:45] LABS: CHOLESTEROL RISK RATIO 1.924 (<5)
[2021-02-18 18:17] VITALS: BP 136/90
[2021-02-19] MEDS: OXcarbazepine 300 MG TAB PO SCH ×2 (08:14→20:04)
[2021-02-19] MEDS: GABAPENTIN 100 MG CAP PO SCH ×2 (08:14→20:04)
[2021-02-19] MEDS: haloperidoL 5 MG TAB PO SCH ×3 (08:14→20:04)
[2021-02-19] MEDS ORDERED: BENZ0.5T23 PO (09:26)
[2021-02-19] MEDS ORDERED: HALO5TA PO (09:26)
--- NOTE | 2021-02-19 10:43 | MHIPNPDOC ---
[facility] [place] Progress Note Progress Note DATE OF SERVICE: 02/18/21 - Late entry HISTORY: Patient is a 30 year old Single, female who was brought to the ED by her father who had reported that she was not taking her Bipolar medications, she presented in the ED with manic speech and behaviors. PER ED REPORT: Pt. has been medically cleared. Pt. is in rm. along with her father. Pt. states she would like her father to stay during interview because he knows her and she is having difficulty thinking and speaking. Even though her speech is quite understandable, she asked for an healthcare consultant because she doesn't think we can understand her, asks if this health underwriter knows sign language. Pt. speech is quite rapid, she cannot stay on topic and mood is very labile. Pt. states she is her in ER because her mom triggered her and did not count to three for her today and then mother left before she gave her a hug. Pt. stated that she remembered being very anxious and taking off her clothes and crawling to the door, states she cannot connect verbally or visually with anyone Pt. states she has many problems because of her mothers breastmilk had too much caffeine in it. Pt exhibits flight of ideas. Pt. became very upset with father at one pt. and kicked him out of the room, stating he was a liar, was taking her mothers side, that he does not even know her. Pt. is very elevated in conversation, sates she only trusts the public safety teacher that is outside her door. Pt. states she smokes pot every four hours and has talking to her PCP in [facility] about the medical use of marijuana. Pt. states she has OCD. She tells her father to talk about what the Dr's have said because she does not believe in diagnoses. Pt. father reports pt is diagnosed Bipolar, has had multiple psychiatric admissions, most recently in 12/[address] [facility]. Father reports pt. has not been taking medication for past two weeks. VITAL SIGNS: See below. CURRENT MEDICATIONS: See below. MENTAL STATUS EXAMINATION: Patient is a 30 year old Single, female who was brought to the ED by her father who had reported that she was not taking her Bipolar medications, she presented in the ED with manic speech and behaviors. Speech: Is spontaneous, normal tone and volume. Mildly Tangential Language skills are intact Thought processes including: improved, more linear and organized Thought content: She denies depression. moderate euphoric and grandiose. Abstract reasoning, and computation:fair - improving Description of associations: Grandiose, hypomanic, euphoric Description of abnormal or psychotic thoughts: continues to be grandiose Judgment: improving Insight: improving Orientation: Alert and oriented to person, place and time but not to situation ( states that she was having a seizure) Recent and remote memory: intact Attention span and concentration: good Language: expansive Fund of knowledge: average Mood: Moderately Euphoric affect: congruent with mood DIAGNOSES: 1. Bipolar 1, Disorder, Manic 2. Cannabis Use Disorder 3. r/o PTSD 4. r/o Substance Induced Mood Disorder ASSESSMENT: In today's meeting patient is showing improvement in her mood, affect and speech. She is mildly tangential but her thought process is more linear and coherent. She smiles on approach, appears mildly euphoric. She is mildly hypomanic but this is an improvement. Patient is improving and she will be discharged on with follow up. She talked about her boyfriend and is hoping to return to his apartment. Patient's parents are willing to take in patient and provider supportive care. MANAGEMENT PLAN: Continue medications and supportive therapies as ordered. Convert to 2 PC. TIme Spent: 25 minutes Vital Signs Vital Signs Date Time Temp Pulse Resp B/P (MAP) Pulse Ox O2 Delivery O2 Flow Rate FiO2 02/18/21 18:17 98.7 83 16 136/90 (105) 100 02/18/21 07:03 Room Air Current Medications Current Medications Medications (Trade) Dose Ordered Sig/Pepito Route PRN Reason Start Time Stop Time Status Last Admin Dose Admin Acetaminophen (Tylenol Tab) 650 mg Q6HP PRN PO HEADACHE or MILD DISCOMFORT 02/08/21 00:20 02/14/21 08:07 DC 02/13/21 12:08 Al Hydrox/Mg Hydrox/Simethicone (Mylanta) 30 ml Q4HP PRN PO HEARTBURN/INDIGESTION 02/08/21 00:20 02/14/21 07:52 Benztropine Mesylate (Cogentin) 0.5 mg BIDP PRN PO EPS 02/13/21 11:55 02/16/21 11:12 Diphenhydramine HCl (Benadryl) 50 mg Q6HP PRN PO ANXIETY/AGITATION 02/16/21 11:15 02/17/21 11:35 Diphenhydramine HCl (Benadryl) 50 mg STAT STAT IM 02/08/21 07:38 02/08/21 07:40 DC 02/08/21 07:50 Diphenhydramine HCl (Benadryl) 50 mg STAT STAT IM 02/15/21 06:41 02/15/21 06:44 DC 02/15/21 07:05 Gabapentin (Neurontin) 100 mg BID PO 02/08/21 09:00 02/19/21 08:14 Haloperidol (Haldol) 5 mg Q6HP PRN PO AGITATION 02/11/21 08:40 02/16/21 11:12 Haloperidol (Haldol) 5 mg STAT STAT IM 02/15/21 06:41 02/15/21 06:44 DC 02/15/21 07:05 Haloperidol (Haldol) 5 mg TID PO 02/11/21 09:00 02/19/21 08:14 Haloperidol (Haldol) 10 mg STAT STAT IM 02/08/21 07:38 02/08/21 07:40 DC 02/08/21 07:49 Home Med (Med Rec Complete!) ASDIRECTED XX 02/07/21 22:50 02/07/21 22:56 DC Ibuprofen (Advil) 800 mg Q6HP PRN PO MODERATE PAIN (PS 5-7) 02/14/21 08:10 02/16/21 11:12 Lorazepam (Ativan) 1 mg Q6HP PRN PO ANXIETY 02/16/21 11:15 02/16/21 11:40 Lorazepam (Ativan) 1 mg STAT STAT IM 02/15/21 06:41 02/15/21 06:44 DC 02/15/21 07:03 Lorazepam (Ativan) 2 mg STAT STAT IM 02/08/21 07:38 02/08/21 07:40 DC 02/08/21 07:50 Magnesium Hydroxide (Milk Of Magnesia) 30 ml DAILYPRN PRN PO CONSTIPATION 02/08/21 00:20 02/13/21 19:16 Olanzapine (ZyPREXA ZYDIS) 5 mg Q8HP PRN PO AGITATION 02/08/21 00:20 02/11/21 08:43 DC 02/10/21 20:05 Ondansetron HCl (Zofran) 4 mg Q4HP PRN PO NAUSEA OR VOMITING 02/10/21 17:25 02/13/21 17:27 Oxcarbazepine (Trileptal) 300 mg BID PO 02/08/21 09:00 02/11/21 16:07 DC 02/11/21 09:35 Oxcarbazepine (Trileptal) 600 mg BID PO 02/11/21 21:00 02/19/21 08:14 Trazodone HCl (Desyrel) 50 mg QHSP PRN PO INSOMNIA 02/08/21 00:20 02/10/21 20:05 Allergies Coded Allergies: No Known Allergies (Unverified , 07/22/20) PRADEEP WILSON NP Feb 19, 2021 10:28
--- NOTE | 2021-02-19 11:01 | MHIPNPDOC ---
[facility] Progress Note Progress Note DATE OF SERVICE: 02/19/21 HISTORY: Patient is a 30 year old Single, female who was brought to the ED by her father who had reported that she was not taking her Bipolar medi cations, she presented in the ED with manic speech and behaviors. PER ED REPORT: Pt. has been medically cleared. Pt. is in rm. along with her father. Pt. states she would like her father to stay during interview because he knows her and she is having difficulty thinking and speaking. Even though her speech is quite understandable, she asked for an translator and interpreter because she doesn't think we can understand her, asks if this check writer salesperson knows sign language. Pt. speech is quite rapid, she cannot stay on topic and mood is very labile. Pt. states she is her in ER because her mom triggered her and did not count to three for her today and then mother left before she gave her a hug. Pt. stated that she remembered being very anxious and taking off her clothes and crawling to the door, states she cannot connect verbally or visually with anyone Pt. states she has many problems because of her mothers breastmilk had too much caffeine in it. Pt exhibits flight of ideas. Pt. became very upset with father at one pt. and kicked him out of the room, stating he was a liar, was taking her mothers side, that he does not even know her. Pt. is very elevated in conversation, sates she only trusts the site safety representative that is outside her door. Pt. states she smokes pot every four hours and has talking to her PCP in [facility] about the medical use of marijuana. Pt. states she has OCD. She tells her father to talk about what the Dr's have said because she does not believe in diagnoses. Pt. father reports pt is diagnosed Bipolar, has had multiple psychiatric admissions, most recently in 12/2019 in [facility]. Father reports pt. has not been taking medication for past two weeks. LABS: Trileptal level ordered, this is a send out lab, results are pending. Lipid panel - within normal limits/ VITAL SIGNS: See below. CURRENT MEDICATIONS: See below. MENTAL STATUS EXAMINATION: Patient is a 30 year old Single, female who was brought to the ED by her father who had reported that she was not taking her Bipolar medications, she presented in the ED with manic speech and behaviors. Speech: Is spontaneous, normal tone and volume. Less Tangential Language skills are intact Thought processes including linear and organized Thought content: She denies depression. denies suicidal ideation/homicidal ideations. Abstract reasoning, and computation:fair - improving Description of associations: less hypomanic Description of abnormal or psychotic thoughts: decreasing hypomania and grandiosity Judgment: fair Insight: fair Orientation: Alert and oriented to person, place and time and situation Recent and remote memory: intact Attention span and concentration: good Language: expansive Fund of knowledge: average Mood: Euthymic affect: congruent with mood DIAGNOSES: 1. Bipolar 1, Disorder, Manic 2. Cannabis Use Disorder 3. r/o PTSD 4. r/o Substance Induced Mood Disorder ASSESSMENT: Patient presents more stable today. She is less hypomanic and has no tangential, rapid speech. Her thought process is linear and goal oriented. She denies depression, anxiety, suicidal/homicidal ideations. She is not presenting with delusional and grandiose thinking. Patient reports that she feels she is stable and at her baseline. She is appreciative in her interview, states that she will maintain and stay compliant with treatment plans including medications. MANAGEMENT PLAN: Continue medications and supportive therapies as ordered. Discharge tomorrow. Orders entered. TIme Spent: 25 minutes Vital Signs Vital Signs Date Time Temp Pulse Resp B/P (MAP) Pulse Ox O2 Delivery O2 Flow Rate FiO2 02/18/21 18:17 98.7 83 16 136/90 (105) 100 02/18/21 07:03 Room Air Current Medications Current Medications Medications (Trade) Dose Ordered Sig/Pepito Route PRN Reason Start Time Stop Time Status Last Admin Dose Admin Acetaminophen (Tylenol Tab) 650 mg Q6HP PRN PO HEADACHE or MILD DISCOMFORT 02/08/21 00:20 02/14/21 08:07 DC 02/13/21 12:08 Al Hydrox/Mg Hydrox/Simethicone (Mylanta) 30 ml Q4HP PRN PO HEARTBURN/INDIGESTION 02/08/21 00:20 02/14/21 07:52 Benztropine Mesylate (Cogentin) 0.5 mg BIDP PRN PO EPS 02/13/21 11:55 02/16/21 11:12 Diphenhydramine HCl (Benadryl) 50 mg Q6HP PRN PO ANXIETY/AGITATION 02/16/21 11:15 02/17/21 11:35 Diphenhydramine HCl (Benadryl) 50 mg STAT STAT IM 02/08/21 07:38 02/08/21 07:40 DC 02/08/21 07:50 Diphenhydramine HCl (Benadryl) 50 mg STAT STAT IM 02/15/21 06:41 02/15/21 06:44 DC 02/15/21 07:05 Gabapentin (Neurontin) 100 mg BID PO 02/08/21 09:00 02/19/21 08:14 Haloperidol (Haldol) 5 mg Q6HP PRN PO AGITATION 02/11/21 08:40 02/16/21 11:12 Haloperidol (Haldol) 5 mg STAT STAT IM 02/15/21 06:41 02/15/21 06:44 DC 02/15/21 07:05 Haloperidol (Haldol) 5 mg TID PO 02/11/21 09:00 02/19/21 08:14 Haloperidol (Haldol) 10 mg STAT STAT IM 02/08/21 07:38 02/08/21 07:40 DC 02/08/21 07:49 Home Med (Med Rec Complete!) ASDIRECTED XX 02/07/21 22:50 02/07/21 22:56 DC Ibuprofen (Advil) 800 mg Q6HP PRN PO MODERATE PAIN (PS 5-7) 02/14/21 08:10 02/16/21 11:12 Lorazepam (Ativan) 1 mg Q6HP PRN PO ANXIETY 02/16/21 11:15 02/16/21 11:40 Lorazepam (Ativan) 1 mg STAT STAT IM 02/15/21 06:41 02/15/21 06:44 DC 02/15/21 07:03 Lorazepam (Ativan) 2 mg STAT STAT IM 02/08/21 07:38 02/08/21 07:40 DC 02/08/21 07:50 Magnesium Hydroxide (Milk Of Magnesia) 30 ml DAILYPRN PRN PO CONSTIPATION 02/08/21 00:20 02/13/21 19:16 Olanzapine (ZyPREXA ZYDIS) 5 mg Q8HP PRN PO AGITATION 02/08/21 00:20 02/11/21 08:43 DC 02/10/21 20:05 Ondansetron HCl (Zofran) 4 mg Q4HP PRN PO NAUSEA OR VOMITING 02/10/21 17:25 02/13/21 17:27 Oxcarbazepine (Trileptal) 300 mg BID PO 02/08/21 09:00 02/11/21 16:07 DC 02/11/21 09:35 Oxcarbazepine (Trileptal) 600 mg BID PO 02/11/21 21:00 02/19/21 08:14 Trazodone HCl (Desyrel) 50 mg QHSP PRN PO INSOMNIA 02/08/21 00:20 02/10/21 20:05 Allergies Coded Allergies: No Known Allergies (Unverified , 07/22/20) PRADEEP WILSON NP Feb 19, 2021 10:59
[2021-02-19] MEDS ORDERED: HALO10TA20 PO (13:48)
[2021-02-19 17:42] VITALS: BP 136/83
[2021-02-19] MEDS: diphenhydrAMINE 50MG CAP PO PRN (20:04)
[2021-02-20 06:25] VITALS: BP 144/82
[2021-02-20] MEDS: haloperidoL 5 MG TAB PO SCH (08:04)
[2021-02-20] MEDS: GABAPENTIN 100 MG CAP PO SCH (08:04)
[2021-02-20] MEDS: OXcarbazepine 300 MG TAB PO SCH (08:04)
[2021-02-20] MEDS ORDERED: HALO5TA PO (09:45)
[2021-02-20] MEDS ORDERED: HALO10TA20 PO (09:45)
--- NOTE | 2021-02-20 15:38 | MHDSPDOC ---
[facility] Discharge Summary Discharge Summary DATE OF ADMISSION: Feb 08, 2021 at 00:16 DATE OF DISCHARGE: Feb 20, 2021 at 10:53 DISCHARGE DIAGNOSES: 1. Bipolar 1, Disorder, Manic 2. Cannabis Use Disorder 3. r/o PTSD 4. r/o Substance Induced Mood Disorder REASON FOR ADMISSION: Patient is a 30 year old Single, female who was brought to the ED by her father who had reported that she was not taking her bipolar medications, she presented in the ED with manic speech and behaviors. PER ED REPORT: Pt. has been medically cleared. Pt. is in rm. along with her father. Pt. states she would like her father to stay during interview because he knows her and she is having difficulty thinking and speaking. Even though her speech is quite understandable, she asked for an translator and interpreter because she doesn't think we can understand her, asks if this job specification writer knows sign language. Pt. speech is quite rapid, she cannot stay on topic and mood is very labile. Pt. states she is her in ER because her mom triggered her and did not count to three for her today and then mother left before she gave her a hug. Pt. stated that she remembered being very anxious and taking off her clothes and crawling to the door, states she cannot connect verbally or visually with anyone Pt. states she has many problems because of her mothers breastmilk had too much caffeine in it. Pt exhibits flight of ideas. Pt. became very upset with father at one pt. and kicked him out of the room, stating he was a liar, was taking her mothers side, that he does not even know her. Pt. is very elevated in conversation, s ates she only trusts the patient safety coordinator that is outside her door. Pt. states she smokes pot every four hours and has talking to her PCP in [place], [place] about the medical use of marijuana. Pt. states she has OCD. She tells her father to talk about what the Dr's have said because she does not believe in diagnoses. Pt. father reports pt. is diagnosed Bipolar, has had multiple psychiatric admissions, most recently in 12/2019 in [facility]. Father reports pt. has not been taking medication for past two weeks. LABS: Trileptal level ordered, this is a send out lab, results are pending. Lipid panel - within normal limits VITAL SIGNS: See below. CONSULTANTS INVOLVED: See Medical H + P by Hospitalist TREATMENT AND PROGRESS ON THE UNIT: Patient was admitted to the [facility] on a 9.39 legal status he was afforded the following treatment modalities: 1) Individual Therapy 2) Group Therapy 3) Medication Management 4) Milieu Therapy 5) Safe Environment HOSPITAL COURSE: Patient was admitted to [facility] on a 9.39 legal status for willy and delusions. She remained manic, grandiose and delusional for over a week, she was initially on Invega which she had reported to be sedating and not effective in the past. She stated the first week that she was not going to comply with medications. Haldol was ordered and she stated that she could not take Haldol. Order for 2 PC and [place] [facility] [place] intention to initiated treatment over objection. Patient then started to be adherent. She was coded twice during this admission for her psychotic episodes. Haldol was effective in treating patient's psychosis. Pt found medications beneficial and tolerated them well. Mood, anxiety, and intrusive thoughts improved with treatment. Pt attended groups daily during stay. Pts symptoms improved with treatment. On day of discharge he denied depression, anxiety, insomnia, SI/HI, hallucinations, delusions. Pt was discharged home with follow- up [facility]. Pt felt safe for discharge. DISCHARGE ASSESSMENT: In today's interview, patient is alert and oriented, pts dress is appropriate. Hygiene and grooming is well-kempt. Smiles on approach and is pleasant and engaged in the interview. Denies depression and anxiety. Denies suicidal and homicidal ideation, planning or intent. Denies and is not observed with willy, psychotic symptoms of delusions, bizarre thinking, obsessions, paranoia, ruminations illogical thoughts, flight of ideas or having poor insight and judgement. Patient has normal mentation, declines further hospitalization on a voluntary status and meets criteria for discharge today. Patient encouraged to return to hospital if symptoms worsen or change and encouraged to call unit if he/she/they needs to speak to provider for questions regarding medications or care. MENTAL STATUS EXAMINATION ON DISCHARGE: Patient is a 30 year old Single, female who was brought to the ED by her father who had reported that she was not taking her bipolar medications, she presented in the ED with manic speech and behaviors. Speech: Is spontaneous, normal tone and volume. Less Tangential Language skills are intact Thought processes including linear and organized Thought content: She denies depression. Denies suicidal ideation/homicidal i deations. Abstract reasoning, and computation: Fair Description of associations: less hypomanic Description of abnormal or psychotic thoughts: decreasing hypomania and grandiosity Judgment: fair Insight: fair Orientation: Alert and oriented to person, place and time and situation Recent and remote memory: intact Attention span and concentration: good Language: expansive Fund of knowledge: average Mood: Euthymic affect: congruent with mood MEDICATIONS ON DISCHARGE: See Medication Reconciliation PLAN/FOLLOWUP ARRANGEMENTS: Patient discharged to home, follow up with [facility] The amount of time spent in the coordination of care for this patient was approximately 25 minutes. ETOH/Disorder Med Rx ETOH/DRUG DISORDER RX: N/A Vital Signs/I&Os Vital Signs Date Time Temp Pulse Resp B/P (MAP) Pulse Ox O2 Delivery O2 Flow Rate FiO2 02/20/21 06:25 98.2 66 16 144/82 (102) 100 Room Air Medications Scheduled Gabapentin (Gabapentin) 300 Mg Capsule, 300 MG PO BID, (Reported) Haloperidol (Haloperidol) 5 Mg Tablet, 5 MG PO QHS for psychosis for 7 Days, #7 Take 1 tablet at Bedtime Haloperidol (Haloperidol) 10 Mg Tablet, 10 MG PO QHS for Psychosis for 7 Days, #7 Take 1 tablet at Bedtime. Oxcarbazepine (Trileptal) 600 Mg Tablet, 600 MG PO BID, (Reported) Scheduled PRN Benztropine Mesylate (Benztropine Mesylate) 0.5 Mg Tablet, 0.5 MG PO BIDP PRN for EPS, #14 Allergies Coded Allergies: No Known Allergies (Unverified , 07/22/20) [employer]EEP [employer] Feb 20, 2021 15:23
== END 2021-02-20 10:53 | disposition home or self-care (01) | DRG 885 ==
LOC: M ED 18:32 → M ED INP 02-08 00:16 → M PSY 02-08 03:23
PROVIDERS: ADMIT Psychiatry & Neurology Psychiatry; ATTEND Psychiatry & Neurology Psychiatry
DX: F31.9 Bipolar disorder, unspecified (principal); Z78.1 Physical restraint status; Z91.14 Patient's other noncompliance with medication regimen; Z20.822 Contact with and (suspected) exposure to COVID-19; Z79.899 Other long term (current) drug therapy; G40.909 Epilepsy, unspecified, not intractable, without status epilepticus; F12.188 Cannabis abuse with other cannabis-induced disorder; F43.10 Post-traumatic stress disorder, unspecified

== ENCOUNTER 2023-07-29 21:12 | Inpatient (IN) | payer MEDICARE, OTHER ==
[~2023-07-29] VITALS: Ht 167.6 cm; Wt 48.7 kg
[~2023-07-29 21:12] MED LIST changes: +BENZ0.5T2 PO; +GABA-282 PO; +HALO10TA20 PO; +HALO5TAB33 PO
[2023-07-29] MEDS ORDERED: LORazepam 2 MG/ML 1ML VIAL IV STA (21:21)
[2023-07-29] MEDS ORDERED: OLANZapine INTRAMUSCULAR 10MG VIAL IM ONE (21:25)
[2023-07-29] MEDS ORDERED: ONDANSETRON 4MG ORAL DISINTEGRATING TAB PO ONE (21:30)
[2023-07-29 21:56] LABS: HEMATOCRIT 36.7 % (36.0-47.0); MEAN CORPUSCULAR HEMOGLOBIN 30.2 pg (27.0-33.0); MEAN CORPUSCULAR HGB CONC 32.7 g/dl (32.0-36.5); MEAN CORPUSCULAR VOLUME 92.4 fl (80.0-96.0); PLATELET COUNT, AUTOMATED 220 10^3/uL (150-450); RED BLOOD COUNT 3.97 10^6/uL (4.00-5.40); WHITE BLOOD COUNT 9.1 10^3/uL (4.0-10.0)
[2023-07-29 22:06] LABS: HCG, SERUM QUALITATIVE NEGATIVE (NEGATIVE)
[2023-07-29 22:19] LABS: ETHYL ALCOHOL (ETHANOL) < 0.003 % (0.000-0.010)
[2023-07-29 22:21] LABS: ALBUMIN 4.3 G/DL (3.2-5.2); ALKALINE PHOSPHATASE 45 U/L (46-116); ALT/SGPT 30 U/L (7.0-40); AST/SGOT 33 U/L (<34); BILIRUBIN,DIRECT 0.2 MG/DL (<0.4); BILIRUBIN,TOTAL 0.6 MG/DL (0.3-1.2); BLOOD UREA NITROGEN 12 MG/DL (9-23); CALCIUM LEVEL 9.4 MG/DL (8.5-10.1); CARBON DIOXIDE LEVEL 21 MMOL/L (20-31); CHLORIDE LEVEL 103 MMOL/L (98-107); CREATININE FOR GFR 0.74 MG/DL (0.55-1.30); GLOMERULAR FILTRATION RATE > 60.0 (>60); GLUCOSE, FASTING 183 MG/DL (60-100); POTASSIUM SERUM 3.6 MMOL/L (3.5-5.1); SALICYLATE LEVEL < 3.0 MG/DL (<30); SODIUM LEVEL 134 MMOL/L (136-145); TOTAL PROTEIN 6.9 G/DL (5.7-8.2)
[2023-07-29 22:23] LABS: THYROID STIMULATING HORMONE 4.675 uIU/ML (0.55-4.78)
[2023-07-30 06:22] LABS: AMPHETAMINES LEVEL URINE NEGATIVE (NEGATIVE); BARBITURATES URINE NEGATIVE (NEGATIVE); BENZODIAZEPINES URINE NEGATIVE (NEGATIVE); COCAINE METABOLITE URINE NEGATIVE (NEGATIVE); METHADONE URINE NEGATIVE (NEGATIVE); OPIATES URINE NEGATIVE (NEGATIVE); PHENCYCLIDINE URINE NEGATIVE (NEGATIVE)
[2023-07-30 06:23] LABS: CANNABINOIDS URINE POSITIVE (NEGATIVE)
[2023-07-30] MEDS ORDERED: PREPARATION H SUPP (HEMORRHOID) PR PRN (09:05)
[2023-07-30] MEDS ORDERED: LORazepam 2 MG TAB PO ONE (09:05)
[2023-07-30] MEDS ORDERED: LORazepam 2 MG/ML 1ML VIAL IM ONE (10:55)
[2023-07-30] MEDS ORDERED: LORazepam 2 MG/ML 1ML VIAL IM STA ×2 (12:17→23:25)
[2023-07-30] MEDS ORDERED: OLANZapine INTRAMUSCULAR 10MG VIAL IM ONE (13:45)
[2023-07-30] MEDS ORDERED: HOME MED LIST COMPLETE! XX SCH (14:00)
[2023-07-30] MEDS ORDERED: MOM 30ML SUSPENSION UDC PO PRN (18:30)
[2023-07-30] MEDS ORDERED: diphenhydrAMINE 25MG CAP PO PRN (18:30)
[2023-07-30] MEDS ORDERED: IBUPROFEN 400MG TAB PO PRN (18:30)
[2023-07-30] MEDS ORDERED: MAALOX 30 ML SUSP *UDC PO PRN (18:30)
[2023-07-30] MEDS ORDERED: ACETAMINOPHEN TAB 650MG DOSE (2X325MG) PO PRN (18:30)
[2023-07-30] MEDS ORDERED: traZODone 50 MG TAB PO PRN (18:30)
[2023-07-30] MEDS ORDERED: PREPARATION H OINTMENT (HEMORRHOID) TOP ONE (21:40)
[2023-07-30] MEDS ORDERED: HALOPERIDOL 5MG/ML 1ML VIAL IM STA (23:25)
[2023-07-30] MEDS ORDERED: diphenhydrAMINE 50MG/ML VIAL IM STA (23:25)
[2023-07-31] MEDS ORDERED: HALOPERIDOL 5MG/ML 1ML VIAL IM STA (00:16)
[2023-07-31] MEDS ORDERED: diphenhydrAMINE 50MG/ML VIAL IM STA (00:16)
[2023-07-31] MEDS ORDERED: LORazepam 2 MG/ML 1ML VIAL IM STA (00:16)
[2023-07-31] MEDS: DIVALPROEX 250MG *ER* TAB PO SCH (09:00)
[2023-07-31 16:08] VITALS: BP 122/84; TEMP 98.8; O2SAT 98
[2023-07-31] MEDS ORDERED: NYSTATIN OINTMENT 15 GM TOP SCH (18:10)
[2023-07-31] MEDS: KETOCONAZOLE 2% CREAM TOP SCH (19:00)
[2023-07-31] MEDS: ANUSOL HC CREAM 30GM TOP PRN (19:10)
[2023-08-01] MEDS: ANUSOL HC CREAM 30GM TOP PRN ×2 (06:34→18:56)
[2023-08-01 07:01] VITALS: BP 105/65; TEMP 97.2; O2SAT 98
[2023-08-01] MEDS: DIVALPROEX 250MG *ER* TAB PO SCH (09:00)
[2023-08-01] MEDS: KETOCONAZOLE 2% CREAM TOP SCH (09:09)
[2023-08-01 16:32] VITALS: BP 139/87; TEMP 98.9; O2SAT 100
[2023-08-02 06:55] VITALS: BP 131/94; TEMP 97.2; O2SAT 100
[2023-08-02] MEDS: ANUSOL HC CREAM 30GM TOP PRN (07:31)
[2023-08-02] MEDS: DIVALPROEX 250MG *ER* TAB PO SCH (08:11)
[2023-08-02] MEDS: KETOCONAZOLE 2% CREAM TOP SCH (08:56)
[2023-08-02 18:58] VITALS: BP 141/86; TEMP 98.6; O2SAT 99
[2023-08-03 06:00] VITALS: BP 145/88; TEMP 98.3; O2SAT 98
[2023-08-03] MEDS: DIVALPROEX 250MG *ER* TAB PO SCH (08:09)
[2023-08-03] MEDS: KETOCONAZOLE 2% CREAM TOP SCH (08:11)
[2023-08-03] MEDS: ANUSOL HC CREAM 30GM TOP PRN ×2 (08:11→22:30)
[2023-08-03 18:00] VITALS: BP 158/78; TEMP 97.1; O2SAT 100
[2023-08-04 06:08] VITALS: BP 136/85; TEMP 97.4; O2SAT 100
[2023-08-04] MEDS: KETOCONAZOLE 2% CREAM TOP SCH (08:46)
[2023-08-04] MEDS: DIVALPROEX 250MG *ER* TAB PO SCH ×2 (08:46→19:53)
[2023-08-04 16:57] VITALS: BP 161/81; TEMP 97.9; O2SAT 100
[2023-08-05 05:52] VITALS: BP 121/79; TEMP 97.7
[2023-08-05] MEDS: KETOCONAZOLE 2% CREAM TOP SCH (08:24)
[2023-08-05] MEDS: DIVALPROEX 250MG *ER* TAB PO SCH (08:25)
[2023-08-05] MEDS ORDERED: HALO5TAB33 PO (08:43)
[2023-08-05 16:12] VITALS: BP 129/88; TEMP 97.7; O2SAT 99
[2023-08-06 06:19] VITALS: BP 140/84; TEMP 97.1
[2023-08-06] MEDS: KETOCONAZOLE 2% CREAM TOP SCH (08:18)
[2023-08-06] MEDS: DIVALPROEX 250MG *ER* TAB PO SCH (08:20)
== END 2023-08-06 11:12 | disposition home or self-care (01) | DRG 885 ==
LOC: M ED 21:12 → M ED INP 07-30 18:26 → M PSY 07-30 23:22
PROVIDERS: ADMIT Student in an Organized Health Care Education/Training Program; ATTEND Student in an Organized Health Care Education/Training Program
DX: F31.9 Bipolar disorder, unspecified (principal); F60.3 Borderline personality disorder; F12.90 Cannabis use, unspecified, uncomplicated; Z78.1 Physical restraint status; B35.4 Tinea corporis; Z20.822 Contact with and (suspected) exposure to COVID-19

== ENCOUNTER 2023-08-13 20:02 | Inpatient (IN) | payer MEDICARE ==
[~2023-08-13] VITALS: Ht 167.6 cm; Wt 49.0 kg
[2023-08-13] MEDS: HALOPERIDOL 5MG/ML 1ML VIAL IM ONE (20:33)
[2023-08-13] MEDS: diphenhydrAMINE 50MG/ML VIAL IM ONE (20:33)
[2023-08-13] MEDS: LORazepam 2 MG/ML 1ML VIAL IM ONE (20:33)
[2023-08-13] MEDS: NS 1,000 ML IV ONE (20:54)
[2023-08-13 20:55] LABS: BASO % 0.5 % (0.0-1.0); EOS % 0.1 % (0.0-3.0); HEMATOCRIT 35.5 % (36.0-47.0); HEMOGLOBIN 11.7 g/dl (12.0-15.5); LYMPH # 1.3 10^3/uL (1.5-5.0); LYMPH % 17.6 % (24.0-44.0); MEAN CORPUSCULAR HEMOGLOBIN 30.7 pg (27.0-33.0); MEAN CORPUSCULAR VOLUME 93.2 fl (80.0-96.0); MONO # 0.8 10^3/uL (0.0-0.8); MONO % 10.5 % (2.0-8.0); NEUTROPHILS # 5.4 10^3/uL (1.5-8.5); NEUTROPHILS % 71.2 % (36.0-66.0); PLATELET COUNT, AUTOMATED 227 10^3/uL (150-450); RED BLOOD COUNT 3.81 10^6/uL (4.00-5.40); WHITE BLOOD COUNT 7.6 10^3/uL (4.0-10.0)
[2023-08-13 21:17] LABS: ETHYL ALCOHOL (ETHANOL) < 0.003 % (0.000-0.010)
[2023-08-13 21:18] LABS: CPK CREATINE PHOSPHOKINASE 605 U/L (34-145)
[2023-08-13 21:19] LABS: ALBUMIN 4.2 G/DL (3.2-5.2); ALKALINE PHOSPHATASE 43 U/L (46-116); ALT/SGPT 47 U/L (7.0-40); AST/SGOT 47 U/L (<34); BILIRUBIN,DIRECT 0.3 MG/DL (<0.4); BILIRUBIN,TOTAL 0.7 MG/DL (0.3-1.2); BLOOD UREA NITROGEN 13 MG/DL (9-23); CALCIUM LEVEL 9.1 MG/DL (8.5-10.1); CARBON DIOXIDE LEVEL 27 MMOL/L (20-31); CHLORIDE LEVEL 105 MMOL/L (98-107); CREATININE FOR GFR 0.77 MG/DL (0.55-1.30); GLOMERULAR FILTRATION RATE > 60.0 (>60); GLUCOSE, FASTING 98 MG/DL (60-100); POTASSIUM SERUM 4.1 MMOL/L (3.5-5.1); SALICYLATE LEVEL < 3.0 MG/DL (<30); SODIUM LEVEL 140 MMOL/L (136-145); TOTAL PROTEIN 6.6 G/DL (5.7-8.2)
[2023-08-13 21:31] LABS: RSV AMPLIFICATION NEGATIVE (NEGATIVE)
[2023-08-13 21:52] LABS: HCG, SERUM QUALITATIVE NEGATIVE (NEGATIVE)
[2023-08-13 21:54] LABS: THYROID STIMULATING HORMONE 2.354 uIU/ML (0.55-4.78)
[2023-08-13 22:42] LABS: AMPHETAMINES LEVEL URINE NEGATIVE (NEGATIVE); BARBITURATES URINE NEGATIVE (NEGATIVE); BENZODIAZEPINES URINE NEGATIVE (NEGATIVE); COCAINE METABOLITE URINE NEGATIVE (NEGATIVE); METHADONE URINE NEGATIVE (NEGATIVE); OPIATES URINE NEGATIVE (NEGATIVE); PHENCYCLIDINE URINE NEGATIVE (NEGATIVE)
[2023-08-13 22:47] LABS: CANNABINOIDS URINE POSITIVE (NEGATIVE)
[2023-08-13] MEDS ORDERED: ALPR0.5T3 PO (23:38)
[2023-08-13] MEDS ORDERED: HOME MED LIST COMPLETE! XX SCH (23:45)
[2023-08-14] MEDS ORDERED: MED REC IN PROGRESS XX SCH (11:40)
[2023-08-14 13:39] VITALS: BP 110/68; TEMP 97.9; O2SAT 99
[2023-08-14 16:59] VITALS: BP 135/75; TEMP 98.3; O2SAT 99
[2023-08-15 06:36] VITALS: BP 118/76; TEMP 96; O2SAT 100
[2023-08-15 16:59] VITALS: BP 126/82; TEMP 98.2; O2SAT 100
[2023-08-15] MEDS: NICOTINE POLACRILEX 2 MG GUM PO PRN (19:36)
[2023-08-16 06:34] VITALS: BP 133/70; TEMP 98
[2023-08-16] MEDS: DIVALPROEX 250MG TAB PO SCH (09:00)
[2023-08-16] MEDS: OLANZapine 5 MG TAB PO SCH (09:00)
[2023-08-16] MEDS: LOPERAMIDE 2 MG CAPLET PO PRN (16:18)
[2023-08-16 18:14] VITALS: BP 135/98; TEMP 98; O2SAT 98
[2023-08-17 06:39] VITALS: BP 110/77; TEMP 96.8; O2SAT 100
[2023-08-17] MEDS: CARIPRAZINE 3MG CAPSULE (VRAYLAR) PO SCH (09:28)
[2023-08-17 17:13] VITALS: BP 141/83; TEMP 98.3; O2SAT 99
[2023-08-18 06:23] VITALS: BP 127/83; TEMP 96.7; O2SAT 98
[2023-08-18 18:17] VITALS: BP 136/86; TEMP 97.1
[2023-08-19 06:15] VITALS: BP 128/90; TEMP 98.1; O2SAT 99
[2023-08-19] MEDS: CARIPRAZINE 3MG CAPSULE (VRAYLAR) PO ONE (09:33)
[2023-08-19 17:25] VITALS: BP 144/90; TEMP 97.5
[2023-08-20] MEDS: CARIPRAZINE 1.5MG CAPSULE (VRAYLAR) PO SCH (08:10)
[2023-08-20] MEDS ORDERED: VRAY1.5C PO (08:41)
== END 2023-08-20 10:58 | disposition home or self-care (01) | DRG 885 ==
LOC: M ED 20:02 → EDBD 20:02 → M PSY 08-14 11:33 → M ED 08-14 12:41 → M PSY 08-19 23:30
PROVIDERS: ADMIT Student in an Organized Health Care Education/Training Program; ATTEND Student in an Organized Health Care Education/Training Program
DX: F31.2 Bipolar disorder, current episode manic severe with psychotic features (principal); F12.90 Cannabis use, unspecified, uncomplicated; Z78.1 Physical restraint status; Z91.148 Patient's other noncompliance with medication regimen for other reason; F17.200 Nicotine dependence, unspecified, uncomplicated; K58.8 Other irritable bowel syndrome

== ENCOUNTER 2023-08-27 10:49 | Inpatient (IN) | payer MEDICARE ==
[~2023-08-27] VITALS: Ht 160 cm; Wt 53.1 kg
[~2023-08-27 10:49] MED LIST changes: +ALPR0.5T3 PO; +VRAY1.5C PO
[2023-08-27 11:44] LABS: HEMATOCRIT 36.4 % (36.0-47.0); MEAN CORPUSCULAR HEMOGLOBIN 30.5 pg (27.0-33.0); MEAN CORPUSCULAR VOLUME 92.6 fl (80.0-96.0); PLATELET COUNT, AUTOMATED 271 10^3/uL (150-450); RED BLOOD COUNT 3.93 10^6/uL (4.00-5.40); WHITE BLOOD COUNT 9.3 10^3/uL (4.0-10.0)
[2023-08-27 12:02] LABS: AMPHETAMINES LEVEL URINE NEGATIVE (NEGATIVE); BARBITURATES URINE NEGATIVE (NEGATIVE); BENZODIAZEPINES URINE NEGATIVE (NEGATIVE); COCAINE METABOLITE URINE NEGATIVE (NEGATIVE); METHADONE URINE NEGATIVE (NEGATIVE); OPIATES URINE NEGATIVE (NEGATIVE); PHENCYCLIDINE URINE NEGATIVE (NEGATIVE)
[2023-08-27 12:03] LABS: CANNABINOIDS URINE POSITIVE (NEGATIVE); ETHYL ALCOHOL (ETHANOL) 0.005 % (0.000-0.010)
[2023-08-27 12:05] LABS: ALBUMIN 4.1 G/DL (3.2-5.2); ALKALINE PHOSPHATASE 48 U/L (46-116); ALT/SGPT 42 U/L (7.0-40); AST/SGOT 47 U/L (<34); BILIRUBIN,DIRECT 0.2 MG/DL (<0.4); BILIRUBIN,TOTAL 0.7 MG/DL (0.3-1.2); BLOOD UREA NITROGEN 14 MG/DL (9-23); CALCIUM LEVEL 9.2 MG/DL (8.5-10.1); CARBON DIOXIDE LEVEL 25 MMOL/L (20-31); CHLORIDE LEVEL 107 MMOL/L (98-107); GLOMERULAR FILTRATION RATE > 60.0 (>60); GLUCOSE, FASTING 112 MG/DL (60-100); POTASSIUM SERUM 4.1 MMOL/L (3.5-5.1); SALICYLATE LEVEL < 3.0 MG/DL (<30); SODIUM LEVEL 139 MMOL/L (136-145); TOTAL PROTEIN 6.7 G/DL (5.7-8.2)
[2023-08-27 12:07] LABS: THYROID STIMULATING HORMONE 4.493 uIU/ML (0.55-4.78)
[2023-08-27] MEDS ORDERED: IBUPROFEN 400MG TAB PO PRN (14:45)
[2023-08-27] MEDS ORDERED: MAALOX 30 ML SUSP *UDC PO PRN (14:45)
[2023-08-27] MEDS ORDERED: MOM 30ML SUSPENSION UDC PO PRN (14:45)
[2023-08-27] MEDS ORDERED: ACETAMINOPHEN TAB 650MG DOSE (2X325MG) PO PRN (14:45)
[2023-08-27 16:06] VITALS: BP 134/89; TEMP 98.1; O2SAT 97
[2023-08-27] MEDS ORDERED: HOME MED LIST COMPLETE! XX SCH (16:45)
[2023-08-27] MEDS: OLANZapine 5 MG TAB PO PRN (19:42)
[2023-08-27] MEDS: LORazepam 2 MG TAB PO ONE (20:30)
[2023-08-28] MEDS: NICOTINE POLACRILEX 2 MG GUM PO PRN (08:31)
[2023-08-28] MEDS ORDERED: LORazepam 2 MG/ML 1ML VIAL IM PRN (09:20)
[2023-08-28] MEDS: LORazepam 2 MG TAB PO PRN (11:41)
[2023-08-28 16:26] VITALS: BP 138/82; TEMP 98.8; O2SAT 98
[2023-08-29 16:14] VITALS: BP 133/88; TEMP 98.8; O2SAT 99
[2023-08-29] MEDS: OLANZapine 10 MG TAB PO SCH (21:23)
[2023-08-30 06:20] VITALS: BP 124/82; TEMP 97.7; O2SAT 98
[2023-08-30] MEDS: CARIPRAZINE 3MG CAPSULE (VRAYLAR) PO SCH (09:00)
[2023-08-30 17:24] VITALS: BP 130/82; TEMP 98; O2SAT 99
[2023-08-31 06:12] VITALS: BP 121/83; TEMP 97.3; O2SAT 99
[2023-08-31] MEDS: diphenhydrAMINE 25MG CAP PO PRN (09:29)
[2023-08-31 15:57] VITALS: BP 135/66; TEMP 97.7; O2SAT 99
[2023-09-01 06:28] VITALS: BP 112/64; TEMP 97.5; O2SAT 99
[2023-09-01 10:45] VITALS: BP 149/71; TEMP 97.9
[2023-09-01 16:27] VITALS: BP 137/82; TEMP 98.5; O2SAT 99
[2023-09-02 06:13] VITALS: BP 123/74; TEMP 98.6; O2SAT 100
[2023-09-02] MEDS: CARIPRAZINE 1.5MG CAPSULE (VRAYLAR) PO SCH (09:00)
[2023-09-02] MEDS: diphenhydrAMINE 50MG CAP PO ONE (09:50)
[2023-09-02] MEDS: LORazepam 2 MG TAB PO ONE (09:50)
[2023-09-02 17:13] VITALS: BP 160/90; TEMP 98.1; O2SAT 99
[2023-09-03 06:21] VITALS: BP 119/69; TEMP 98.2; O2SAT 98
[2023-09-03 15:11] VITALS: BP 160/90; TEMP 98.2; O2SAT 97
[2023-09-03] MEDS: traZODone 50 MG TAB PO PRN (20:13)
[2023-09-04 06:38] VITALS: BP 124/59; TEMP 98; O2SAT 97
[2023-09-04] MEDS: diphenhydrAMINE CREAM 30GM TOP PRN (16:06)
[2023-09-04 16:31] VITALS: BP 128/80; TEMP 98.6; O2SAT 98
[2023-09-05 06:32] VITALS: BP 142/77; TEMP 98.7; O2SAT 99
[2023-09-05 16:33] VITALS: BP 139/85; TEMP 98.5; O2SAT 99
[2023-09-05] MEDS: CYANOCOBALAMIN 500 MCG TAB PO SCH (20:43)
[2023-09-06 06:19] VITALS: BP 111/68; TEMP 97.4; O2SAT 100
[2023-09-06 17:53] VITALS: BP 126/76; TEMP 97.8
[2023-09-07 06:08] VITALS: BP 119/68; TEMP 97.8; O2SAT 100
[2023-09-07] MEDS ORDERED: OLAN1TAB20 PO (11:29)
[2023-09-07] MEDS ORDERED: TRAZ-252 PO (11:29)
[2023-09-07] MEDS ORDERED: VRAY1.5C PO (11:29)
[2023-09-07] MEDS ORDERED: NICO2GUM PO (11:29)
== END 2023-09-07 13:26 | disposition home or self-care (01) | DRG 885 ==
LOC: M ED 10:49 → M ED INP 14:45 → M PSY 15:43
PROVIDERS: ADMIT Student in an Organized Health Care Education/Training Program; ATTEND Student in an Organized Health Care Education/Training Program
DX: F31.2 Bipolar disorder, current episode manic severe with psychotic features (principal); Z91.148 Patient's other noncompliance with medication regimen for other reason; G40.909 Epilepsy, unspecified, not intractable, without status epilepticus

== ENCOUNTER 2024-12-31 23:19 | Inpatient (IN) | payer MEDICARE, OTHER ==
[~2024-12-31] VITALS: Ht 160 cm; Wt 50.2 kg
[~2024-12-31 23:19] MED LIST changes: +GABA-1172 PO; -GABA-282 PO; +NICO2GUM PO; +OLAN1TAB20 PO; +TRAZ-252 PO
[2025-01-01] MEDS: diphenhydrAMINE 50 MG/ML VIAL IM ONE (00:19)
[2025-01-01] MEDS: HALOPERIDOL LACTATE 5 MG/ML VIAL IM ONE (00:19)
[2025-01-01 00:26] LABS: ETHYL ALCOHOL (ETHANOL) 0.006 % (0.000-0.010)
[2025-01-01 00:26] LABS: PLATELET COUNT, AUTOMATED 234 10^3/uL (150-450)
[2025-01-01 00:28] LABS: SALICYLATE LEVEL < 3.0 MG/DL (<30)
[2025-01-01 00:29] LABS: ALT/SGPT 68 U/L (7.0-40); AST/SGOT 96 U/L (<34); CALCIUM LEVEL 9.5 MG/DL (8.5-10.1); CARBON DIOXIDE LEVEL 24 MMOL/L (20-31); CHLORIDE LEVEL 105 MMOL/L (98-107); CREATININE FOR GFR 0.79 MG/DL (0.55-1.30); GLOMERULAR FILTRATION RATE > 90.0 (>60); POTASSIUM SERUM 4.2 MMOL/L (3.5-5.1); SODIUM LEVEL 141 MMOL/L (136-145)
[2025-01-01] MEDS ORDERED: HOME MED LIST COMPLETE! XX SCH (10:20)
[2025-01-01 10:39] LABS: AMPHETAMINES LEVEL URINE NEGATIVE (NEGATIVE)
[2025-01-01 10:40] LABS: BARBITURATES URINE NEGATIVE (NEGATIVE); BENZODIAZEPINES URINE NEGATIVE (NEGATIVE); CANNABINOIDS URINE POSITIVE (NEGATIVE); COCAINE METABOLITE URINE NEGATIVE (NEGATIVE); METHADONE URINE NEGATIVE (NEGATIVE); OPIATES URINE NEGATIVE (NEGATIVE); PHENCYCLIDINE URINE NEGATIVE (NEGATIVE)
[2025-01-01 10:40] LABS: HEPATITIS C VIRUS ABY INDEX 0.03 INDEX (<0.8)
[2025-01-01] MEDS ORDERED: IBUPROFEN 400 MG TAB PO PRN (12:50)
[2025-01-01] MEDS ORDERED: MAALOX 30 ML SUSP *UDC PO PRN (12:50)
[2025-01-01] MEDS ORDERED: ACETAMINOPHEN 325 MG TAB PO PRN (12:50)
[2025-01-01 18:23] LABS: HIV SCREEN CENTAUR SOURCE NEGATIVE (NEGATIVE)
[2025-01-01 22:35] VITALS: BP 140/85; TEMP 97.6; O2SAT 99
[2025-01-02 06:28] VITALS: BP 129/85; TEMP 98.1; O2SAT 99
[2025-01-02] MEDS: NICOTINE 14 MG/24 HR TRANSDERMAL TD SCH (09:00)
[2025-01-02 16:22] VITALS: BP 140/80; TEMP 98.3; O2SAT 100
[2025-01-02] MEDS: OLANZapine 5 MG TAB PO SCH (21:00)
[2025-01-03] MEDS: NICOTINE POLACRILEX 2 MG GUM PO PRN (01:02)
[2025-01-03 06:45] VITALS: BP 151/84; TEMP 98.9; O2SAT 98
[2025-01-03 16:02] VITALS: BP 133/92; TEMP 97.8; O2SAT 98
[2025-01-04 06:34] VITALS: BP 160/80; TEMP 97.9; O2SAT 100
[2025-01-04 08:06] VITALS: BP 144/80
[2025-01-04 16:04] VITALS: BP 146/97; TEMP 98.4; O2SAT 100
[2025-01-05 06:32] VITALS: BP 157/96; TEMP 98.2; O2SAT 99
[2025-01-05 08:18] VITALS: BP 140/91; TEMP 97.6; O2SAT 100
[2025-01-05 15:22] VITALS: BP 142/88; TEMP 98; O2SAT 99
[2025-01-05] MEDS: HALOPERIDOL 5 MG TAB PO PRN (19:42)
[2025-01-05] MEDS: traZODone 50 MG TAB PO PRN (19:42)
[2025-01-05] MEDS: LORazepam 1 MG TAB PO PRN (19:43)
[2025-01-06 06:24] VITALS: BP 136/80; TEMP 98.6; O2SAT 100
[2025-01-06 15:17] VITALS: BP 130/81; TEMP 97.9; O2SAT 100
[2025-01-07 06:48] VITALS: BP 140/85; TEMP 97.8; O2SAT 99
[2025-01-07] MEDS: MULTIVITAMINS/MINERALS THERAP 1 TAB PO SCH (11:36)
[2025-01-07 15:03] VITALS: BP 127/76; TEMP 98.5; O2SAT 100
[2025-01-08 06:13] VITALS: BP 137/88; TEMP 97.3; O2SAT 96
[2025-01-08 16:11] VITALS: BP_SYST 148; BP_SYST 150; BP_DIAS 75; BP_DIAS 92; TEMP 98.5; O2SAT 99
[2025-01-09] VITALS (8 sets, daily range): BP systolic 93–151; BP diastolic 54–80; TEMP 97–97.6; O2SAT 98–100
[2025-01-09] MEDS: OLANZapine INTRAMUSCULAR 10MG VIAL IM STA (04:31)
[2025-01-09] MEDS: HALOPERIDOL LACTATE 5 MG/ML VIAL IM STA (08:42)
[2025-01-09] MEDS: diphenhydrAMINE 50 MG/ML VIAL IM STA (08:42)
[2025-01-10 06:29] VITALS: BP 139/90; TEMP 97.6; O2SAT 99
[2025-01-10] MEDS: LITHIUM CARBONATE 300 MG CAP PO SCH (09:00)
[2025-01-10 17:30] VITALS: BP 133/86; TEMP 98.2
[2025-01-11 06:39] VITALS: BP 135/92; TEMP 97.7; O2SAT 99
[2025-01-11 15:23] VITALS: BP 140/95; TEMP 99.1; O2SAT 100
[2025-01-12 02:55] VITALS: BP 136/90; TEMP 98.5; O2SAT 97
[2025-01-12 15:03] VITALS: BP 141/86; TEMP 98.5; O2SAT 98
[2025-01-12] MEDS: NEOSPORIN TOP OINT 15 GM TOP PRN (16:57)
[2025-01-13] MEDS: OLANZapine 5 MG TAB PO PRN (02:02)
[2025-01-13] MEDS: ALPRAZolam 0.5 MG TAB PO SCH (11:08)
[2025-01-13 15:39] VITALS: BP 135/88; TEMP 98.2; O2SAT 99
[2025-01-14 06:42] VITALS: BP 140/90; TEMP 97.4; O2SAT 99
[2025-01-14 15:20] VITALS: BP 133/84; TEMP 98.4; O2SAT 98
[2025-01-14] MEDS: MOM 30 ML SUSPENSION UDC PO PRN (15:41)
[2025-01-14] MEDS: OLANZapine INTRAMUSCULAR 10MG VIAL IM ONE (23:16)
[2025-01-15 15:36] VITALS: BP 139/89; TEMP 98.4; O2SAT 99
[2025-01-15] MEDS: OLANZapine 5 MG TAB PO SCH (20:52)
[2025-01-16 06:38] VITALS: BP 151/101; TEMP 98.2; O2SAT 99
[2025-01-16 15:05] VITALS: BP 136/82; TEMP 98.8; O2SAT 99
[2025-01-16] MEDS: ALPRAZolam 0.5 MG TAB PO ONE (18:25)
[2025-01-17 06:15] VITALS: BP 131/94; TEMP 98.3; O2SAT 98
[2025-01-17] MEDS ORDERED: diphenhydrAMINE 50 MG/ML VIAL IM STA (12:51)
[2025-01-17] MEDS ORDERED: HALOPERIDOL LACTATE 5 MG/ML VIAL IM STA (12:51)
[2025-01-17] MEDS: HALOPERIDOL 10 MG TAB PO ONE (13:06)
[2025-01-17 17:20] VITALS: BP 134/79; TEMP 97.3; O2SAT 99
[2025-01-17] MEDS: OLANZapine 10 MG TAB PO SCH (21:42)
[2025-01-18 10:23] VITALS: BP 134/79; TEMP 97.3; O2SAT 99
[2025-01-18] MEDS: OLANZapine ORAL DISINTEGRATING TAB 5MG PO PRN (12:58)
[2025-01-18 15:30] VITALS: BP 145/96; TEMP 98; O2SAT 100
[2025-01-18] MEDS: HALOPERIDOL 10 MG TAB PO ONE (15:47)
[2025-01-18] MEDS: OLANZapine ORAL DISINTEGRATING TAB 5MG PO SCH (21:00)
[2025-01-19 06:23] VITALS: BP 137/84; TEMP 97; O2SAT 99
[2025-01-19] MEDS: HALOPERIDOL 10 MG TAB PO STA (18:59)
[2025-01-19] MEDS ORDERED: PREPARATION H OINTMENT (HEMORRHOID) PR PRN (20:35)
[2025-01-19] MEDS ORDERED: diphenhydrAMINE 50 MG/ML VIAL IM STA (22:09)
[2025-01-19] MEDS ORDERED: HALOPERIDOL LACTATE 5 MG/ML VIAL IM STA (22:09)
[2025-01-19] MEDS: diphenhydrAMINE 50 MG/ML VIAL IM STA (22:30)
[2025-01-19] MEDS: HALOPERIDOL LACTATE 5 MG/ML VIAL IM STA (22:31)
[2025-01-19 23:30] VITALS: BP 107/63; TEMP 97.2; O2SAT 100
[2025-01-19 23:45] VITALS: BP 107/63; TEMP 97.2; O2SAT 100
[2025-01-20] VITALS: BP 105/54; TEMP 97.7; O2SAT 100
[2025-01-20 00:15] VITALS: BP 105/54; TEMP 97.7; O2SAT 100
[2025-01-20 09:20] VITALS: BP 115/75; TEMP 98.1; O2SAT 100
[2025-01-20 15:06] VITALS: BP 134/85; TEMP 98.5; O2SAT 99
[2025-01-21 15:45] VITALS: BP 137/93; TEMP 97.8; O2SAT 97
[2025-01-21] MEDS: diphenhydrAMINE 50 MG/ML VIAL IM STA (21:02)
[2025-01-21] MEDS: HALOPERIDOL LACTATE 5 MG/ML VIAL IM STA (21:02)
[2025-01-22 16:20] VITALS: BP 139/84; TEMP 98.4; O2SAT 95
[2025-01-23 15:17] VITALS: BP 154/82; TEMP 98.5; O2SAT 95
[2025-01-24 06:23] VITALS: BP 126/78; TEMP 98.3; O2SAT 98
[2025-01-24 18:33] VITALS: BP 145/94; TEMP 98.4; O2SAT 97
[2025-01-25 07:49] VITALS: BP 148/84; TEMP 97.4; O2SAT 96
[2025-01-25 14:17] VITALS: BP 155/84; TEMP 98.4; O2SAT 99
[2025-01-25 20:02] VITALS: BP 134/92; TEMP 98.1; O2SAT 98
[2025-01-26] MEDS: VALPROIC ACID 250MG CAP PO SCH (11:35)
[2025-01-26 13:00] VITALS: BP 140/90; TEMP 98.1; O2SAT 98
[2025-01-26 15:04] VITALS: BP 140/92; TEMP 98.2; O2SAT 100
[2025-01-27 09:57] VITALS: BP 140/92; TEMP 98.2; O2SAT 100
[2025-01-27 14:51] VITALS: BP 158/99; TEMP 98.9; O2SAT 98
[2025-01-28 14:30] VITALS: BP 139/85; TEMP 98.6; O2SAT 100
[2025-01-29 06:11] VITALS: BP 132/55; TEMP 98.3; O2SAT 98
[2025-01-29 16:12] VITALS: BP 131/80; TEMP 98.2; O2SAT 99
[2025-01-29] MEDS: CYANOCOBALAMIN 500 MCG TAB PO SCH (16:33)
[2025-01-30 07:00] VITALS: BP 123/90; TEMP 98.6; O2SAT 100
[2025-01-30] MEDS: ALPRAZolam 0.5 MG TAB PO SCH (08:31)
[2025-01-30 15:07] VITALS: BP 137/93; TEMP 97.5; O2SAT 99
[2025-01-31 06:41] VITALS: BP 144/78; TEMP 97.6; O2SAT 97
[2025-01-31] MEDS: OLANZapine 5 MG TAB PO SCH (08:32)
[2025-01-31 15:15] VITALS: BP 146/86; TEMP 98.6; O2SAT 96
[2025-01-31] MEDS: CYANOCOBALAMIN 500 MCG TAB PO SCH (18:28)
[2025-02-01] MEDS ORDERED: ALPRAZolam 0.5 MG TAB PO PRN (14:30)
[2025-02-01 16:13] VITALS: BP 140/86; TEMP 97.4; O2SAT 100
[2025-02-01] MEDS: OLANZapine ORAL DISINTEGRATING TAB 5MG PO SCH (20:17)
[2025-02-02 06:53] VITALS: BP 135/61; TEMP 98.4; O2SAT 99
[2025-02-02] MEDS ORDERED: ALPR0.5T3 PO (10:25)
[2025-02-02] MEDS ORDERED: OLAN1TAB20 PO (10:59)
[2025-02-02] MEDS ORDERED: TRAZ-252 PO (10:59)
[2025-02-02] MEDS ORDERED: OLANZapine 10 MG TAB PO SCH (21:00)
== END 2025-02-02 12:34 | disposition home or self-care (01) | DRG 753 ==
LOC: M ED 23:19 → M ED INP 01-01 12:46 → M PSY 01-01 21:47
PROVIDERS: ADMIT Internal Medicine; ATTEND Internal Medicine
DX: F31.2 Bipolar disorder, current episode manic severe with psychotic features (principal); G40.909 Epilepsy, unspecified, not intractable, without status epilepticus; F41.9 Anxiety disorder, unspecified; F12.90 Cannabis use, unspecified, uncomplicated; R74.01 Elevation of levels of liver transaminase levels; Z62.810 Personal history of physical and sexual abuse in childhood; Z91.52 Personal history of nonsuicidal self-harm